=== PATIENT | female | born 1950 | race Caucasian/White ===

== ENCOUNTER 2023-06-08 13:11 | Emergency (ER) | payer OTHER, SELFPAY ==
[2023-06-08 13:14] VITALS: BP 180/91
[2023-06-08 13:15] VITALS: BP 180/91; BMI 30.2
[2023-06-08 13:26] LABS: % Basophils 0.6 % (0-2); % Eosinophils 0.4 % (0-6); % Immature Granulocytes 1.1 % (0-0.5); % Lymphocytes 6.9 % (20.5-51.1); % Monocytes 6.7 % (1.7-9.3); % Neutrophils 84.3 % (42.2-75.2); Absolute Basophils 0.1 10^3/uL (0-0.2); Absolute Eosinophils 0.1 10^3/uL (0-0.7); Absolute Immature Granulocytes 0.2 10^3/uL (0-0.05); Absolute Lymphocytes 0.9 10^3/uL (1.2-3.4); Absolute Monocytes 0.9 10^3/uL (0.1-0.6); Absolute Neutrophils 11.4 10^3/uL (1.4-6.5); Hematocrit 38.2 % (37.0-47.0); Hemoglobin 13.2 g/dL (12.0-16.0); Mean Corp Hgb Conc. 34.6 g/dL (33.0-37.0); Mean Corpuscular Hgb 35.3 pg (27.0-31.0); Mean Corpuscular Volume 102.1 fL (81.0-99.0); Mean Platelet Volume 9.6 fL (7.4-10.4); Nucleated Red Blood Cells % 0 %; Platelet Count 235 10^3/uL (130-400); Red Blood Cell Count 3.74 10^6/uL (4.20-5.40); Red Cell Dist. Width 14.5 % (11.5-14.5); White Blood Cell Count 13.5 10^3/uL (4.8-10.8)
[2023-06-08 13:39] LABS: COVID-19 Antigen Negative (Negative)
[2023-06-08 13:50] LABS: NT-proBNP 1330 pg/ml; Troponin I < 0.012 ng/ml
[2023-06-08 13:57] VITALS: BP 148/99
[2023-06-08 14:00] VITALS: BP 164/101
--- NOTE | 2023-06-08 14:03 | ED.GENMED ---
History of Present Illness
General
Chief Complaint: Chest Pain
Source: patient
Exam Limitations: none
Time Seen by Provider: 06/08/23 14:03
Travel History
Have you had any contact with someone who has COVID-19?: No
Do you have any symptoms of coronavirus? Fever > 100 degrees, chills, cough, shortness of breath, sore throat, loss of taste or smell, muscle aches, or headache?: No
History of Present Illness
History of Present Illness:
72-year-old female complaining of chest pain. Vague in nature. Started yesterday. Persisted throughout the evening persisted overnight, and did not sleep well. Persisted this morning. Relieved with nitroglycerin via the medics. Some increased
shortness of breath the last 2 to 3 days although shortness of breath is now at baseline. She feels comfortable at this time. She occasionally gets chest discomfort and will take a nitroglycerin although usually symptoms are much briefer
chronologically.
Past History
Past History
ED Past Medical History: Arrthythmia (Atrial fib, SVT), CHF, COPD, CVA (Left sided weakness,), HTN, Hypercholesterolemia, Psychiatric (Anxiety, Depression) and Other ( heart murmur, PNA, GI bleeding, Back pain, Migraines, diverticulitis, UTI, )
ED Past Surgical History: Orthopedic (Cervical spine surgery ) and Other (Cataracts, Left leg surgery with radiation)
Patient has exhibited threatening behavior?: No
PSI?: No
Social History
Tobacco: Non-smoker
Alcohol: None (Wine 2 glasses)
Drug: None
Personal:
Living: with family
Employment: Employed
Family History
Family History: CAD
Review of Systems
Review of Systems
All Other Systems: Not applicable
Constitutional: Reports weight loss; Denies weight gain
Respiratory: Reports cough (Chronic); Denies hemoptysis
Cardiac: Denies syncope
ABD/GI: Reports no symptoms
Phy Exam
Physical Exam
Physical Exam:
GENERAL: Alert and oriented in no apparent distress
EYE: Orbits normal.
NECK: Supple
ENT: Pharynx without erythema
CARDIAC: Regular rate and rhythm without any obvious murmurs.
LUNGS: Clear breath sounds,normal. Room air pulse ox 97%. Placed on 2 L at patient request. She states the oxygen makes her feel better
ABDOMEN: Soft, without focal tenderness or distention
NEUROLOGICAL: Alert and oriented , grossly non-focal
SKIN: Warm and dry, no rash or lesion, no discoloration, skin intact.
MUSCULOSKELETAL: No edema,no deformity.Good color
PSYCH: Normal and appropriate interaction.
Scores
Heart Score for Chest Pain Patients
STEMI patient?: No
History: Slightly or Non-Suspicious
ECG: Normal
Age: >/= 65 years
Risk Factors: >/= 3 Risk Factors or History of CAD
Troponin: </= Normal Limit
Heart Score for Chest Pain Patients: 4
Heart Score Risk: 20.3% MACE over next 6 weeks
Course
Orders/Labs/Results
Orders:
Orders
06/08/23 13:14
Electrocardiogram (*1) Urgent
Reason for Study: Chest Pain
EKG- Treatment ONCE
CR Chest - 2 Views Urgent
Comment:
Reason For Exam: shortness of breath
06/08/23 13:19
COVID-19 Antigen Urgent
Source: Nasal Swab
Complete Blood Count/With Diff Urgent
NT-proBNP Urgent
Troponin I Urgent
Influenza A+B Rapid Molecular Urgent
RADHA Source: Nasal Swab
Specimen Description:
06/08/23 15:21
Basic Metabolic Panel Routine
06/08/23 16:12
Electrocardiogram (*1) Stat
Reason for Study: Other
Other Reason for Exam: chest pain
EKG- Treatment ONCE
06/08/23 16:32
Troponin I Urgent
06/08/23 18:46
Oxycodone/Acetaminophen [Percocet 5325] 1 tablet PO NOW STA
Abnormal Lab Results
06/08/23 06/08/23
13:19 15:21
WBC 13.5 H 10^3/uL
(4.8-10.8)
RBC 3.74 L 10^6/uL
(4.20-5.40)
MCV 102.1 H fL
(81.0-99.0)
MCH 35.3 H pg
(27.0-31.0)
Abs Immat Gran (auto) 0.2 H 10^3/uL
(0-0.05)
Absolute Neuts (auto) 11.4 H 10^3/uL
(1.4-6.5)
Absolute Lymphs (auto) 0.9 L 10^3/uL
(1.2-3.4)
Absolute Monos (auto) 0.9 H 10^3/uL
(0.1-0.6)
Immature Gran % 1.1 H %
(0-0.5)
Neutrophils % 84.3 H %
(42.2-75.2)
Lymphocytes % 6.9 L %
(20.5-51.1)
Sodium 133 L mmol/L
(135-145)
Chloride 95 L mmol/L
(98-107)
Creatinine 0.5 L mg/dL
(0.6-1.0)
Glucose 117 H mg/dl
(70-99)
06/08/23 13:19
06/08/23 15:21
Vital Signs
Initial and Last Documented VS:
Initial Vital Signs
BP
180/91
06/08/23 13:14
Last Documented Vital Signs
Temp Pulse Resp BP Pulse Ox
97.6 F 82 23 180/91 96
06/08/23 13:15 06/08/23 13:30 06/08/23 13:30 06/08/23 13:15 06/08/23 13:15
MDM/Problems Addressed
Differential Diagnosis Includes:
Patient with prolonged chest discomfort for about 24 hours continuous in nature. Nonexertional nonpleuritic.. Initial cardiac testing all stable. With prolonged symptoms, feel troponin would have been bumped by this time. However for
completeness repeat troponin and EKG will be done. Patient is clinically not in heart failure. Chest x-ray is negative. Her weight is down. She has no leg edema. proBNP is up minimally however. Highly doubt pulmonary emboli. No pleuritic
pain. Shortness of breath is resolved.
*Radiology
Radiology exam reviewed: radiology read reviewed (Negative)
*Pulse Oximetry
Patient hypoxic: no
*EKG
Interpreted by ED Provider?: Yes
Interpretation: abnormal
Comparison EKG: changes noted
Heart Rate: 82
Rate: normal
Rhythm: sinus and PAC's
[place]: normal axis
Interval: normal interval
QRS Pattern: normal QRS
Ischemia: no ischemia
*Critical Care Note
Total Time (30-74mins, 75-104mins- exclusive of procedures): Not Applicable
Data Reviewed
Review of Other/Old Records Reveals: Labs, Records, Radiology Studies and Discharge Summary
Update Note
Update Note:
Repeat EKG normal sinus rhythm PACs no acute findings. Patient has been stable and asymptomatic since arrival. Prolonged chest pain with 2 negative troponins and stable EKGs. No respiratory symptoms currently. Discharged to follow-up. Patient
has a nonspecific leukocytosis
Cardiology was contacted for follow-up
ED Attending Note
-
Portions of this chart may have been created with voice recognition software.� Occasional wrong word or��sound alike� substitutions may have occurred due to the inherent limitations of voice recognition software.
Discharge Plan
Departure
Patient Disposition: Home (Routine Discharge)
Date of Disposition: 06/08/23
Time of Disposition: 18:30
Patient with high blood pressure during this ER visit?: Yes
Discharge Problem:
Transient chest pain/shortness of breath
Instructions: Shortness of Breath (Dyspnea) (DC), Chest Pain DCA Follow Up, BLOOD PRESSURE
Prescriptions:
No Action
aspirin 81 mg Tablet,Delayed Release (Dr/Ec)
81 mg PO DAILY@1100
spironolactone 25 mg Tablet
25 mg PO DAILY@1100
oxycodone-acetaminophen 5-325 mg Tablet
1 tab PO QID
Rx Instructions:
04/05/2023, patient filled this medication on 04/02/2023 for 120 tablets according to PDMP.
citalopram 20 mg Tablet
20 mg PO DAILY@1100
gabapentin 300 mg Capsule
300 mg PO TID
albuterol sulfate 90 mcg/actuation Hfa Aerosol Inhaler
2 puff INHALATION R DAILY
aripiprazole 2 mg Tablet
2 mg PO DAILY@1100
furosemide 40 MG tablet
40 mg PO BID
pantoprazole 40 MG tablet,delayed release (DR/EC)
40 mg PO DAILYPRN PRN (Reason: gerd)
ondansetron HCl 4 mg Tablet
4 mg PO TID PRN (Reason: nausea)
metoprolol succinate 100 MG tablet extended release 24 hr
100 mg PO DAILY@1100
loperamide 2 mg Capsule
2 mg PO BIDPRN PRN (Reason: diarrhea)
Centrum Silver 400-250 mcg Tablet,Chewable
1 tab PO DAILY@1100
atorvastatin 20 MG tablet
20 mg PO DAILY@1100
Referrals:
Landon Jaquez, [Family Provider] -
Interventions
Interventions:
*Risk Screen - Suicide Last Done: 06/08/23 13:15
*General Assessment Last Done: 06/08/23 13:15
*Neglect/Abuse Screening Last Done: 06/08/23 13:15
ED- Fall Risk Assessment Last Done: 06/08/23 13:15
*ED COVID-19 Vaccine History Last Done: 06/08/23 13:15
ED- Cardiac Assessment Last Done: 06/08/23 13:15
--- NOTE | 2023-06-08 15:21 | PHANOTE ---
med rec note- patient does not know her medication and said her will in off work at 4:30pm and will be in with patient medication list
[2023-06-08 15:52] LABS: Blood Urea Nitrogen 17 mg/dl (7-17); Calcium 9.2 mg/dl (8.4-10.2); Carbon Dioxide 24 mmol/L (22-30); Chloride 95 mmol/L (98-107); Estimated Creatinine Clearance 71 ml/min; Glucose 117 mg/dl (70-99); Sodium 133 mmol/L (135-145); eGFR > 60.00
[2023-06-08 17:06] LABS: Troponin I < 0.012 ng/ml
[2023-06-08] MEDS: PERCOCET 5/325 1 TABLET PO (18:50)
== END 2023-06-08 19:28 | disposition home or self-care (01) ==
LOC: EMR 13:11
PROVIDERS: Student in an Organized Health Care Education/Training Program; EMERGENCY PHYSICIAN Emergency Medicine; FAMILY PHYSICIAN Family Medicine
DX: R07.89 Other chest pain (principal); R06.02 Shortness of breath; I48.91 Unspecified atrial fibrillation; I47.10 Supraventricular tachycardia, unspecified; I11.0 Hypertensive heart disease with heart failure; I50.9 Heart failure, unspecified; E78.00 Pure hypercholesterolemia, unspecified; F32.A Depression, unspecified; F41.9 Anxiety disorder, unspecified; I25.10 Atherosclerotic heart disease of native coronary artery without angina pectoris; J44.9 Chronic obstructive pulmonary disease, unspecified; Z82.49 Family history of ischemic heart disease and other diseases of the circulatory system; Z86.73 Personal history of transient ischemic attack (TIA), and cerebral infarction without residual deficits; Z87.440 Personal history of urinary (tract) infections
CPT/HCPCS: 99283; 71046; 80048; 83880; 84484; 85025; 87502; 87811; 93005

== ENCOUNTER → 2023-10-13 17:42 | Outpatient (REF) | payer OTHER, SELFPAY | LOC: RAD 17:42 | PROVIDERS: ATTENDING PHYSICIAN Family Medicine | DX: I82.402 Acute embolism and thrombosis of unspecified deep veins of left lower extremity (principal) | CPT/HCPCS: 93971 ==

== ENCOUNTER 2023-11-23 13:18 | Inpatient (IN) | payer OTHER, SELFPAY ==
[2023-11-23] VITALS (11 sets, daily range): BP systolic 127–161; BP diastolic 73–101
[2023-11-23 07:38] LABS: % Basophils 0.3 % (0-2); % Eosinophils 0.2 % (0-6); % Immature Granulocytes 0.6 % (0-0.5); % Lymphocytes 9.9 % (20.5-51.1); % Monocytes 6.9 % (1.7-9.3); % Neutrophils 82.1 % (42.2-75.2); Absolute Immature Granulocytes 0.1 10^3/uL (0-0.05); Absolute Monocytes 0.7 10^3/uL (0.1-0.6); Hematocrit 36.1 % (37.0-47.0); Hemoglobin 12.5 g/dL (12.0-16.0); Mean Corp Hgb Conc. 34.6 g/dL (33.0-37.0); Mean Corpuscular Hgb 34.7 pg (27.0-31.0); Mean Corpuscular Volume 100.3 fL (81.0-99.0); Mean Platelet Volume 10.1 fL (7.4-10.4); Nucleated Red Blood Cells % 0 %; Platelet Count 247 10^3/uL (130-400); Red Cell Dist. Width 13.9 % (11.5-14.5); White Blood Cell Count 9.7 10^3/uL (4.8-10.8)
[2023-11-23 07:54] LABS: Blood Urea Nitrogen 8 mg/dl (7-17); Calcium 7.3 mg/dl (8.4-10.2); Carbon Dioxide 34 mmol/L (22-30); Chloride 93 mmol/L (98-107); Estimated Creatinine Clearance 60 ml/min; Glucose 130 mg/dl (70-99); Sodium 135 mmol/L (135-145); eGFR > 60.00
[2023-11-23] MEDS: PROTONIX IV 40 MG IV (07:58)
[2023-11-23] MEDS: ZOFRAN 4 MG IV (07:58)
[2023-11-23] MEDS: NSS 1000 IV ×2 (07:59→17:13)
--- NOTE | 2023-11-23 08:17 | ED.GENMED ---
History of Present Illness
General
Chief Complaint: Rectal Bleeding
Source: patient
Exam Limitations: none
Time Seen by Provider: 11/23/23 07:22
Nursing documentation reviewed up to this point in time: agreed with
History of Present Illness
History of Present Illness:
73-year-old female drinker history of anxiety hypercholesterolemia fluid retention PAF presents with nausea vomiting diarrhea has felt fairly ill through the weekend vomiting black material loose black stools, mild abdominal cramping felt ill today
called 911, denies any chest pain though she has had increased shortness of breath requiring increased oxygen has not had anything to eat for few days,
Past History
Past History
ED Past Medical History: Arrthythmia (Atrial fib, SVT), CHF, COPD, CVA (Left sided weakness,), HTN, Hypercholesterolemia, Psychiatric (Anxiety, Depression) and Other ( heart murmur, PNA, GI bleeding, Back pain, Migraines, diverticulitis, UTI, )
ED Past Surgical History: Orthopedic (Cervical spine surgery ) and Other (Cataracts, Left leg surgery with radiation)
Patient has exhibited threatening behavior?: No
PSI?: No
Social History
Tobacco: Non-smoker
Alcohol: Daily (Wine 2 glasses)
Drug: None
Personal:
Living: with family
Employment: Employed
Family History
Family History: CAD
Review of Systems
Review of Systems
All Other Systems: Not applicable
Constitutional: Reports fatigue
Respiratory: Reports trouble breathing; Denies cough
Cardiac: Reports no symptoms
ABD/GI: Reports abdominal pain, nausea, vomiting, diarrhea and black stools
: Reports no symptoms
Musculoskeletal: Reports no symptoms
Skin: Reports no symptoms
Neurological: Reports dizzy and weakness
Endocrine: Reports no symptoms
Hematologic/Lymphatic: Reports no symptoms
Psychiatric: Reports no symptoms
Phy Exam
Physical Exam
Physical Exam:
Physical Exam
General: Dyspneic somewhat anxious appearing for
Neck: Lips are dry
Heart: Regular
Lungs: Crackles at the left
Abdomen: Distended, minimal left lower abdominal
Neuro: alert and oriented. no focal neurological deficits
Skin: no rash
Psychiatric: Anxious minimally tremulous cooperative
Extremities: No calf pain
Course
Orders/Labs/Results
Orders:
Orders
11/23/23 07:30
Basic Metabolic Panel Urgent
Complete Blood Count/With Diff Urgent
11/23/23 07:44
Electrocardiogram (*1) Urgent
Reason for Study: Palpitations
EKG- Treatment ONCE
11/23/23 07:48
0.9% Sodium Chloride 1000 ml [Nss] 1,000 ml IV BOLUS
Ondansetron Injectable [Zofran] 4 mg IV NOW STA
Pantoprazole [Protonix IV] 40 mg IV NOW STA
11/23/23 07:49
Add On- LAB Urgent
Tests Added?: magnesium
11/23/23 07:53
CR Chest - 2 Views Urgent
Comment:
Reason For Exam: sob
11/23/23 08:55
Lorazepam [Ativan] 1 mg IV NOW STA
11/23/23 08:56
Clindamycin 600 mg/50 ml [Cleocin] 600 mg in 50 ml IV NOW
11/23/23 09:00
Add On- LAB Urgent
Tests Added?: procalcitonin
Basic Metabolic Panel Urgent
Magnesium Urgent
Troponin I Urgent
Abnormal Lab Results
11/23/23
07:30
RBC 3.60 L 10^6/uL
(4.20-5.40)
Hct 36.1 L %
(37.0-47.0)
MCV 100.3 H fL
(81.0-99.0)
MCH 34.7 H pg
(27.0-31.0)
Abs Immat Gran (auto) 0.1 H 10^3/uL
(0-0.05)
Absolute Neuts (auto) 8.0 H 10^3/uL
(1.4-6.5)
Absolute Lymphs (auto) 1.0 L 10^3/uL
(1.2-3.4)
Absolute Monos (auto) 0.7 H 10^3/uL
(0.1-0.6)
Immature Gran % 0.6 H %
(0-0.5)
Neutrophils % 82.1 H %
(42.2-75.2)
Lymphocytes % 9.9 L %
(20.5-51.1)
Chloride 93 L mmol/L
(98-107)
Carbon Dioxide 34 H mmol/L
(22-30)
Glucose 130 H mg/dl
(70-99)
Calcium 7.3 L mg/dl
(8.4-10.2)
11/23/23 07:30
Vital Signs
Initial and Last Documented VS:
Initial Vital Signs
Pulse Resp Pulse Ox
110 24 96
11/23/23 07:20 11/23/23 07:20 11/23/23 07:20
Last Documented Vital Signs
Pulse Resp BP Pulse Ox
100 18 160/101 96
11/23/23 08:00 11/23/23 08:00 11/23/23 08:00 11/23/23 08:14
MDM/Problems Addressed
Differential Diagnosis Includes:
Dehydration GI bleed colitis upper GI bleed gastritis pneumonia heart failure other
MDM/Problems Addressed:
Nausea vomiting diarrhea black stool shortness of
Chronic conditions affecting care: HTN, Arrhythmia and Psychiatric illness
Acute Exacerbation and/or Progression of Chronic Illness: HTN, Arrhythmia and Psychiatric illness
*Radiology
Radiology exam reviewed: preliminary read by ED provider
*Pulse Oximetry
Patient hypoxic: no
*EKG
Interpreted by ED Provider?: Yes
Interpretation: abnormal
Comparison EKG: no comparison EKG present
Heart Rate: 78
Rate: normal
Rhythm: sinus
Ischemia: non-specific ST changes
*Mixer Operator Raw Salt Interpretation
Rate: normal
Interpretation: normal
Heart Rate: 78
Rhythm: sinus
*Critical Care Note
Total Time (30-74mins, 75-104mins- exclusive of procedures): Not Applicable
Data Reviewed
Review of Other/Old Records Reveals: Labs
Source: patient
Update Note
Update Note:
Update labs are noted chest x-ray is noted patient passed some yellowish mucousy stool here,
Wonder if the patient could have some aspiration she states is possible, alcohol withdrawal could be playing a role to try dose of Ativan allergies are noted we will give clinda,
ED Attending Note
-
Portions of this chart may have been created with voice recognition software.� Occasional wrong word or��sound alike� substitutions may have occurred due to the inherent limitations of voice recognition software.
Discharge Plan
Departure
Patient Disposition: Admit
Date of Disposition: 11/23/23
Time of Disposition: 09:15
Admit to: Telemetry
Presentation/result/management discussed w/ accepting MD/DO: Hospitalist
Condition: Fair
Covid-19: Not Applicable
Discharge Problem:
Alcohol use, Paroxysmal atrial fibrillation, Dyspnea, Respiratory insufficiency, Chronic diastolic (congestive) heart failure, Pneumonia
Prescriptions:
No Action
aspirin 81 mg Tablet,Delayed Release (Dr/Ec)
81 mg PO DAILY@1100
spironolactone 25 mg Tablet
25 mg PO DAILY@1100
oxycodone-acetaminophen 5-325 mg Tablet
1 tab PO QID
Rx Instructions:
04/05/2023, patient filled this medication on 04/02/2023 for 120 tablets according to PDMP.
citalopram 20 mg Tablet
20 mg PO DAILY@1100
gabapentin 300 mg Capsule
300 mg PO TID
albuterol sulfate 90 mcg/actuation Hfa Aerosol Inhaler
2 puff INHALATION R DAILY
aripiprazole 2 mg Tablet
2 mg PO DAILY@1100
furosemide 40 MG tablet
40 mg PO BID
pantoprazole 40 MG tablet,delayed release (DR/EC)
40 mg PO DAILYPRN PRN (Reason: gerd)
ondansetron HCl 4 mg Tablet
4 mg PO TID PRN (Reason: nausea)
metoprolol succinate 100 MG tablet extended release 24 hr
100 mg PO DAILY@1100
loperamide 2 mg Capsule
2 mg PO BIDPRN PRN (Reason: diarrhea)
Centrum Silver 400-250 mcg Tablet,Chewable
1 tab PO DAILY@1100
atorvastatin 20 MG tablet
20 mg PO DAILY@1100
Referrals:
Landon Jaquez DO [Family Provider] -
Interventions
Interventions:
*Risk Screen - Suicide Last Done: 11/23/23 07:20
VW-Ewhgwr-Rgyuxtfipo Assessment Last Done: 11/23/23 08:14
ED- Cardiac Assessment Last Done: 11/23/23 08:14
ED- Pulmonary Assessment Last Done: 11/23/23 08:14
Discharge Date and Time
Print Language: UPPER SORBIAN
[2023-11-23] MEDS: ATIVAN 1 MG IV (09:04)
[2023-11-23] MEDS: CLEOCIN 50 IV (09:45)
[2023-11-23 11:33] LABS: Troponin I < 0.012 ng/ml
[2023-11-23 11:38] LABS: Blood Urea Nitrogen 7 mg/dl (7-17); Calcium 6.9 mg/dl (8.4-10.2); Carbon Dioxide 31 mmol/L (22-30); Chloride 95 mmol/L (98-107); Estimated Creatinine Clearance 70 ml/min; Glucose 126 mg/dl (70-99); Potassium 2.6 mmol/L (3.5-5.1); Sodium 134 mmol/L (135-145); eGFR > 60.00
[2023-11-23 11:45] LABS: Procalcitonin 0.06 ng/ml (0.0-0.25)
[2023-11-23 11:56] LABS: Magnesium 0.7 mg/dl (1.6-2.3)
[2023-11-23] MEDS: MAGNESIUM SULFATE 50 IV ×3 (12:03→22:32)
[2023-11-23] MEDS: KCL 40 MEQ PO ×3 (12:04→22:31)
[2023-11-23] MEDS: KCL 270 MEQ IV (12:27)
--- NOTE | 2023-11-23 13:05 | W.PN.UPDATE ---
Update Note
Progress Note Update
I saw and examined the patient.
The INSURANCE CLAIMS SUPERVISOR or PA's note was reviewed and I agree with the note.
Comment: 73-year-old female with alcohol abuse disorder who presents with chief complaints of nausea, vomiting, and diarrhea. She reports having melanotic stools and dark emesis.
137/84, 105, 20, 96% 2L NC O2
Gen: NAD, AAOx3, appears chronically ill.
Eyes: EOMI, PERRLA, no scleral icterus.
Neck: supple.
CV: Tachycardic, regular rhythm, +S1/S2, no m/r/g.
Resp: CTAB, no rales, wheezes, or rhonchi.
Abd: +BS, soft, NT, ND
Skin: No rashes.
Neuro: CN 2-12 intact, non-focal.
Psych: Normal mood and affect.
Lab Results
24 07
07:30 10:55
WBC 9.7
RBC 3.60 L
Hgb 12.5
Hct 36.1 L
MCV 100.3 H
MCH 34.7 H
MCHC 34.6
RDW 13.9
Plt Count 247
MPV 10.1
Abs Immat Gran (auto) 0.1 H
Absolute Neuts (auto) 8.0 H
Absolute Lymphs (auto) 1.0 L
Absolute Monos (auto) 0.7 H
Absolute Eos (auto) 0.0
Absolute Basos (auto) 0.0
Immature Gran % 0.6 H
Neutrophils % 82.1 H
Lymphocytes % 9.9 L
Monocytes % 6.9
Eosinophils % 0.2
Basophils % 0.3
Nucleated RBC % 0
Sodium 135 134 L
Potassium 2.6 L*
Chloride 93 L 95 L
Carbon Dioxide 34 H 31 H
BUN 8 7
Creatinine 0.7 0.6
Estimated Creat Clear 60 70
eGFR > 60.00 > 60.00
Glucose 130 H 126 H
Calcium 7.3 L 6.9 L*
Magnesium Cancelled 0.7 L*
Total Bilirubin Cancelled
AST Cancelled
ALT Cancelled
Alkaline Phosphatase Cancelled
Troponin I < 0.012
Total Protein Cancelled
Albumin Cancelled
Procalcitonin 0.06
CXR:
1. Findings suggestive of mild central pulmonary vascular congestion.
2. Haziness of the left hemidiaphragm, which may represent left lobe subsegmental atelectasis, pneumonia, or alveolar pulmonary edema.
3. No significant pleural effusion on either side.
Coffee-ground emesis, melena:
-NPO with IVFs
-PPI gtt
-H/H Q6H
-c/s GI
Multiple electrolyte abnormalities:
-Hypokalemia: Total of 120meq K today, recheck K this evening
-Hypomagnesemia: Total of 4g IV Mg, recheck Mg this evening
-Hypocalcemia: awaiting albumin to calculate corrected calcium
Alcohol abuse disorder:
-Patient is a poor historian at this time. She is given different stories as to how much alcohol she consumes and when her last drink was. To me she stated that her last drink was around 3 AM today.
-Aggressive IV fluids. Recent hemoglobin A1c was 6.6% so we will use normal saline at this time.
-MSAS protocol (IV thiamine/folate, PRN Ativan). Low threshold for phenobarbital taper or Precedex.
Situation is one of high risk.
--- NOTE | 2023-11-23 13:13 | HPS.HSE ---
Family Physician
-
Family Physician: Landon Jaquez
Chief Complaint
-
Nausea, Vomiting and Diarrhea
History of Present Illness
Patient is a 73 y/o female with a PMH of AFib, HTN, HLD, CHF, COPD, CVA with L-sided weakness, and anxiety who reports to the ED for nausea, vomiting, and diarrhea x 4 days. Patient admits that the nausea, vomiting, and diarrhea started Thursday. The
last time she vomited and had diarrhea was at 3am this morning. She describes the vomit as being 'Pepsi colored' and her stool as 'black pudding.' She admits to [facility] abdominal pain that she describes as a sharp, stabbing pain that rates 8/10. She
also experienced dizziness/lightheadedness when she gets up. She has had a decrease in her appetite since Thursday due to the nausea and vomiting. She admits to palpitations and LE edema, which aren't new for her. She denies chest pain, LOC, or vision
changes. She denies smoking. She states she drinks 2 glasses of wine per night but hasn't had any since Thursday, but then later reported last drink at 3AM. She has a history of previous GI bleeds with EGD in Mar 2022 showing moderate gastritis and
large duodenal ulcer.
Medical History
Past Medical History
Past Medical History: Reports Other
Additional Past Medical History:
Chronic Hypoxic Respiratory Failure
Chronic Diastolic Heart Failure
Paroxysmal Atrial Fibrillation
CVA
Essential Hypertension
Hyperlipidemia
Diabetes Mellitus, Type II
COPD
Anxiety/Depression
PUD with prior GI Bleed
Chronic Pain with Opioid Dependence
Past Surgical History: Reports Other
Additional Past Surgical History:
Left Leg Surgery
Cervical Spine Surgery
Social History
Tobacco: Non-smoker
Alcohol: Daily (2 glasses of white wine)
Family History
Family History: Not pertinent
Allergies / Home Medications
Allergies reflects when Allergies were last updated in [facility].
Home Medications with original date entered in [facility]
Allergy/Medication List:
Medications on admission are unable to be verified or confirmed at this time.
If medication reconciliation has not been performed, why?: Medication List N/A
Review of Systems
-
A 12 point ROS was completed and negative except as noted: Yes
Constitutional: Denies Fever or Chills
Respiratory: Denies Cough or Trouble Breathing
Cardiac: Reports Palpitations; Denies Chest Pain
: Reports See HPI
Physical Exam
Vital Signs
Vital Signs
Pulse Resp BP Pulse Ox
105 20 137/84 96
11/23/23 12:08 11/23/23 12:08 11/23/23 12:06 11/23/23 11:49
Physical Exam
General: Well Nourished and No Apparent Distress
HEENT: Anicteric and Moist mucous membranes
Respiratory: Clear, Non Labored Respirations and Other (Poor Inspiratory Effort)
Cardiac: S1/S2, Regular Rhythm and Tachycardia (Slightly)
GI: Soft and Tender (Mild throughout without rebound or guarding)
Musculoskeletal: No Clubbing, No Cyanosis and Other (Chronic edema per patient)
Skin: Warm and Dry
Neuro: Awake, Alert, Oriented and Nonfocal/grossly intact
Laboratory Results
-
11/23/23 07:30
Laboratory Results
Total Bilirubin Cancelled 11/23/23 07:30
AST Cancelled 11/23/23 07:30
ALT Cancelled 11/23/23 07:30
Alkaline Phosphatase Cancelled 11/23/23 07:30
Troponin I < 0.012 ng/ml 11/23/23 10:55
Data Reviewed
-
Lab Data: Labs Reviewed by me
Old Records: Reviewed
Impression/Plan
-
Coffee-Ground Emesis/Black Stools, concern for GI Bleed
-Consult GI
-Continue NPO/IVFs
-Continue Protonix drip
-Trend serial H&H
Acute/Severe Electrolyte Abnormalities: Hypokalemia, Hypomagnesemia and Hypocalcemia
-Await albumin to determine corrected calcium
-Continue to replace potassium and magnesium
-Recheck labs later this afternoon and in AM
Prolonged QT
-Avoid QT prolonging medications
-Recheck ECG in AM following electrolyte correction
Alcohol Use Disorder
-Continue alcohol withdrawal protocol
-Continue thiamine and folic acid
Chronic Hypoxic Respiratory Failure
-Continue supplemental oxygen - 3L at baseline
Chronic Diastolic Heart Failure
-Hold Lasix due to significant electrolyte abnormalities
-Monitor Is&Os and Daily Weights
Paroxysmal Atrial Fibrillation
-Patient is not on anticoagulation due to compliance issues, fall risk and prior history of GI Bleed
-Continue metoprolol for rate/rhythm control
Essential Hypertension
-Continue metoprolol
Hyperlipidemia
-Hold statin
Diabetes Mellitus, Type II
-Check HgbA1c
-Monitor sugars and continue coverage insulin
COPD, no acute exacerbation
-Patient does not appear to use any inhalers at home
Anxiety/Depression
-Resume home meds once able to confirm
Chronic Pain with Opioid Dependence
-Continue oxycodone as prior to admission
DVT proph: SCDs
Code Status: Full Code
--- NOTE | 2023-11-23 14:03 | CON.GI ---
Addendum entered and electronically signed by Sabrina Mayes MD 11/23/23 17:12:
I saw and examined the patient.
The [employer]OR [employer] or PA's note was reviewed and I agree with the note.
Comment:
Pt is a 73-year-old woman with a history of atrial fibrillation not on anticoagulation, CVA, COPD who has a history of a peptic ulcer disease with a DU in 2021 secondary to NSAIDs. She states that starting over the weekend she had some nausea a few
episodes of vomiting and diarrhea. She said the diarrhea was dark in nature. No recent antibiotics. No recent NSAIDs.
abd: soft nontender
dark brown stool
impression:
diarrhea
n/v
hx of PUD
plan:
stool studies
IV hydration and electrolyte correction
PPI
antiemetics
EGD when stable
Original Note:
Consultation
-
Date/Time Consultation Requested: 11/23/23
Date/Time Consultation Performed: 11/23/23 @ 13:45
Requesting Provider: Stephanie Wick PA-C
Performing Provider: MARY Dorantes; Dr. Sabrina Mayes
Reason for Consultation: r/o GI bleed, melena, coffee ground emesis
Medical History
Chief Complaint / HPI
Chief Complaint: nausea, vomiting, diarrhea
History of Present Illness:
The patient is a 73-year-old female with a past medical history significant for atrial fibrillation not on anticoagulation, hypertension, hyperlipidemia, CHF, COPD, CVA with history of left-sided weakness, anxiety, history of peptic ulcer disease
and GI bleed with admission in 2020 secondary to NSAIDs, diverticulitis, alcohol abuse, who presented to the emergency room with complaints of nausea, vomiting, and diarrhea. We are being asked to evaluate for possible GI bleed. The patient
reports that 4 days ago she developed diarrhea that appeared black in color. She notes that she continued with dark stools, and then yesterday started to feel unwell and developed nausea with vomiting. She notes that she did vomit multiple times
and it appeared black in color. She does note that she does drink Pepsi quite often and did drink it yesterday. She has not been eating or drink well otherwise. She reports having some abdominal pain in the left lower quadrant although does not
expand upon details further as she is falling asleep often during the evaluation. She reports she does take pantoprazole on occasion but does not taking this regularly as directed previously. She does drink 2 glasses of white wine on a daily basis
and has been doing so for many years. She also admits she takes Percocet 4 times a day and does suffer from constipation somewhat chronically. She does not take any laxatives on a regular basis. She denies any fevers or chills. She does have
some shortness of breath and dizziness but denies any chest pain. She denies any heartburn symptoms, dysphagia, or odynophagia. She denies any recent sick contacts or recent travel. She denies any recent medication changes or antibiotics. She
denies any use of NSAIDs. She denies any use of blood thinners. She denies any family history of GI cancers or disorders. She denies any history of alcohol withdrawal or drug use. X-ray of the chest showed findings suggestive of mild central
pulmonary vascular congestion and haziness of the left diaphragm with no significant pleural effusion. Routine labs on admission showed WBC 9.7, hemoglobin 12.5, MCV 100.3, platelets 247,000, sodium 135, potassium 2.6, total CO2 31, BUN 7,
creatinine 0.6, calcium 6.9, magnesium 0.7, troponin negative x 1, procalcitonin 0.06. LFTs are pending. She was treated with IV Zofran, IV Protonix and a 1 L fluid bolus. She was also given IV Ativan x 1 dose along with clindamycin IV x 1.
Potassium and magnesium repletion also in progress. She is being admitted for further evaluation by GI.
Past Medical History
Past Medical History: Arrhythmias (Afib off AC), Asthma, CHF, COPD, CVA (left sided wee), HTN, Hypercholesterolemia, NIDDM and Other (chronic hypoxic respiratory failure, PUD with GI bleed 2020, chronic pain syndrome on chronic narcotics)
Past Surgical History: Orthopedic (knee surgery, cervical spine surgery)
Social History
Tobacco: Non-Smoker
Alcohol: Daily (2 glasses of white wine daily for many years)
Drug: None
Personal:
Living: With Family
Family History
Family History: Reviewed & Not Pertinent
Allergies / Home Medications
Allergy/AdvReac Type Severity Reaction Status Date / Time
amlodipine besylate Allergy EDEMA Verified 05/21/23 18:05
[From Norvasc] SEVERE,
WAIST TO
TOES
codeine phosphate Allergy DIZZINESS Verified 05/21/23 18:05
[From Tylenol-Codeine #3]
Penicillins Allergy Rash Verified 05/21/23 18:05
ranitidine HCl [From Zantac] Allergy 'Tongue Verified 05/21/23 18:05
swells'
tramadol Allergy excessive Verified 05/21/23 18:05
drowsiness
�Medication �Instructions �Recorded
albuterol sulfate 90 mcg/actuation 2 puff inhalation R DAILY 03/26/22
aerosol inhaler Shortness of breath/wheezing
aripiprazole 2 mg tablet 2 mg PO DAILY@1100 Neurological 03/26/22
Condition/anxiety
aspirin 81 mg tablet,delayed 81 mg PO DAILY@1100 Blood clot 03/26/22
release prevention/tx
citalopram 20 mg tablet 20 mg PO DAILY@1100 Depression 03/26/22
furosemide 40 mg tablet 40 mg PO BID Fluid 03/26/22
retention/Swelling
gabapentin 300 mg capsule 300 mg PO TID neuropathy 03/26/22
oxycodone-acetaminophen 5 mg-325 1 tab PO QID Pain 03/26/22
mg tablet
spironolactone 25 mg tablet 25 mg PO DAILY@1100 Fluid 03/26/22
retention/Swelling
metoprolol succinate 100 mg 100 mg PO DAILY@1100 paroxysmal 01/30/23
tablet,extended release 24 hr atrial fibrillation
ondansetron HCl 4 mg tablet 4 mg PO TID PRN nausea 01/30/23
pantoprazole 40 mg tablet,delayed 40 mg PO DAILYPRN PRN gerd 01/30/23
release
atorvastatin 20 mg tablet 20 mg PO DAILY@1100 High 04/05/23
Cholesterol
loperamide 2 mg capsule 2 mg PO BIDPRN PRN diarrhea 04/05/23
multivit with min-folic 1 tab PO DAILY@1100 Supplement 04/05/23
acid-lutein 400 mcg-250 mcg
chewable tablet (Centrum Silver)
Review of Systems
-
History Source: Patient
Constitutional: Reports No Symptoms
EENT: Reports No Symptoms
Respiratory: Reports Trouble Breathing
Cardiac: Reports No Symptoms
Abdomen/GI: Reports Abdominal Pain, Nausea, Vomiting, Diarrhea, Black Stools and Other (coffee ground emesis)
: Reports No Symptoms
Musculoskeletal: Reports Other (chronic pain)
Skin: Reports No Symptoms
Neurological: Reports No Symptoms
Vital Signs
Pulse Resp BP Pulse Ox
95 24 127/84 89
11/23/23 13:15 11/23/23 13:15 11/23/23 13:00 11/23/23 13:15
Physical Exam
Exam
General: No Apparent Distress, Comfortable and Other (chronically ill appearing female in NAD)
HEENT: Normocephalic, Anicteric and Atraumatic
Respiratory: Non Labored Respirations and Other (overall diminished breath sounds bilaterally, supplemental O2 in place)
Cardiac: S1/S2 and Regular Rhythm (sinus tachycardia on tele monitor)
Breast: Deferred by me
GI: Soft, Normal Bowel Sounds, Tender (RUQ/LUQ/midepigastric area) and Distended (softly distended)
Rectal: Brown (green loose stool in diaper; rectal exam deferred)
Musculoskeletal: No Edema
Skin: Warm
Neuro: Awake, Alert, Oriented, AO x 3 and Other (falling asleep during conversation)
Psych: Calm
Results
WBC 9.7 10^3/uL (4.8-10.8) 11/23/23 07:30
Hgb 12.5 g/dL (12.0-16.0) 11/23/23 07:30
Hct 36.1 % (37.0-47.0) L 11/23/23 07:30
MCV 100.3 fL (81.0-99.0) H 11/23/23 07:30
Plt Count 247 10^3/uL (130-400) 11/23/23 07:30
Absolute Neuts (auto) 8.0 10^3/uL (1.4-6.5) H 11/23/23 07:30
Sodium 134 mmol/L (135-145) L 11/23/23 10:55
Potassium 2.6 mmol/L (3.5-5.1) L* 11/23/23 10:55
Chloride 95 mmol/L (98-107) L 11/23/23 10:55
Carbon Dioxide 31 mmol/L (22-30) H 11/23/23 10:55
BUN 7 mg/dl (7-17) 11/23/23 10:55
Creatinine 0.6 mg/dL (0.6-1.0) 11/23/23 10:55
Calcium 6.9 mg/dl (8.4-10.2) L* 11/23/23 10:55
Total Bilirubin Cancelled 11/23/23 07:30
AST Cancelled 11/23/23 07:30
ALT Cancelled 11/23/23 07:30
Alkaline Phosphatase Cancelled 11/23/23 07:30
Diagnostic Image Results:
11/23/2023 CXR:
1. Findings suggestive of mild central pulmonary vascular congestion.
2. Haziness of the left hemidiaphragm, which may represent left lobe subsegmental atelectasis, pneumonia, or alveolar pulmonary edema.
3. No significant pleural effusion on either side
Prior GI Procedures:
EGD: 03/18/2022 Dr. Mcpherson: Normal esophagus. Z-line regular, 37 cm from the incisors. Moderate diffuse gastritis. Biopsied for Helicobacter pylori testing. Duodenitis of the bulb. Large, non-bleeding duodenal ulcer with pigmented material due to
Aleve. Normal second portion of the duodenum, third portion of the duodenum and fourth portion of the duodenum. Biopsied for evaluation of celiac disease of the duodenum and fourth portion of the duodenum. Biopsied for evaluation of celiac disease.
Path showing mild chronic inactive gastritis and acute and chronic duodenitis, neg h pylori or celiac.
11/19/2020 EGD, Dr. Mcpherson: Normal esophagus. Widely patent Schatzki ring. Mild antral gastritis. Biopsied. Your ulcer has healed Normal examined duodenum. Biopsied. Path showing chronic gastritis, neg H pylori or IM, celiac neg.
07/04/2020 EGD: Normal esophagus. Non-bleeding gastric ulcer with a clean ulcer base (Joel Class III). Biopsied. Acute gastritis. Biopsied. Mucosal changes in the duodenum. Normal second portion of the duodenum. Path showing focally active
gastritis in the antrum, neg for IM or H pylori
09/26/2015 EGD: Normal esophagus. Z-line regular, 35 cm from the incisors. Normal stomach. Biopsied. Ulcer has healed. Normal mucosa was found in the greater curvature. Biopsied. Normal examined duodenum. Biopsied. Path showing chronic
inflammation of the stomach. Neg H pylori, celiac.
05/28/2015 EGD, Dr. Mcpherson: Normal esophagus. Z-line regular, 39 cm from the incisors. Gastric ulcer containing visible vessel. Treated with thermal therapy. Clips were placed. Red blood in the gastric fundus. Few other, shallow antral gastric
ulcers with clean base. Normal examined duodenum.
Colonoscopy: 09/26/2015 Dr. Mcpherson: Diverticulosis in the sigmoid colon and in the descending colon.
Assessment / Plan
-
The patient is a 73-year-old female with a past medical history significant for atrial fibrillation not on anticoagulation, hypertension, hyperlipidemia, CHF, COPD, CVA with history of left-sided weakness, anxiety, history of peptic ulcer disease
and GI bleed with admission in 2020 secondary to NSAIDs, diverticulitis, alcohol abuse, who presented to the emergency room with complaints of nausea, vomiting, and diarrhea, found to have concern for GI bleed with reported melena and coffee-ground
emesis. She is hemodynamically stable with a normal hemoglobin although with electrolyte abnormalities including a magnesium of 0.7 and potassium of 2.6. She does drink alcohol on a daily basis with 2 glasses of wine. She has some upper abdominal
tenderness but with +bowel sounds and soft abdomen. She has a history of peptic ulcer disease in 2020 where she was hospitalized with melena found to have a nonbleeding gastric ulcer and acute gastritis. Subsequent EGD showed healing of the ulcer.
She denies any further NSAID use. She does take Percocet for chronic pain which she takes 4 times daily, and does suffer from constipation due to this. She has had no further vomiting. Her stool is green/brown in color on exam. Her hemoglobin
is stable at 12.5. She does have electrolyte derangements with a potassium of 2.6 and a magnesium of 0.7. LFTs and renal function are normal.
Problem list:
-nausea, vomiting, diarrhea
-melena
-coffee ground emesis
-Hypoxia, with x-ray findings showing mild pulmonary congestion versus possible pneumonia
-Severe hypokalemia
-Severe hypomagnesemia
-Macrocytosis
-History of GI bleed secondary to peptic ulcer disease with NSAIDs use 2020
-Alcohol abuse
Other pertinent medical history:
-Hypertension
-Hyperlipidemia
-Chronic diastolic heart failure
-COPD
-Chronic respiratory failure
-CVA with history of left-sided weakness
-Anxiety
-Diverticulitis
Recommendations:
-Etiology of current symptoms possibly secondary to gastroenteritis versus other infectious etiology versus less likely GI bleed versus constipation given chronic narcotic use versus other.
---She has no ongoing signs of bleeding currently with a stable hemoglobin and stable hemodynamics. Her stool is green/brown in color. She has had no further vomiting.
-At this time would recommend checking stool studies to rule out infectious etiology
-Will check abdominal x-ray to rule out obstruction versus severe constipation given her history of narcotic use
-Trend H&H
-Would continue on PPI twice daily IV for now, although with normal BUN and no signs of active bleeding I feel that a bleeding ulcer is less likely
-To consider EGD, although the does not appear to need this urgently and can possibly be done outpatient if deemed necessary
-Replete electrolytes as per hospitalist
-Continue n.p.o. for now, but to consider initiating clear liquid diet as long as she has no further vomiting
-Limit use of narcotics as able
-Defer IV fluids to hospitalist given her hx CHF and O2 requirements
-Avoid use of NSAIDs given history of peptic ulcer disease
-I advised her she needs to reduce her alcohol intake given the risk for chronic liver disease including cirrhosis. Based on her labs she does not fit this picture with normal platelets and LFTs
-Further plan pending above
Data Reviewed
-
Old Records: Reviewed
-
-
Thank you for consultation and allowing me to participate in the patient's care. Please call the unified communications architect GI physician during the after hours with any questions or concerns.
[2023-11-23 14:35] LABS: ALT (SGPT) 16 U/L (0-35); AST (SGOT) 34 U/L (14-36); Albumin 3.3 g/dl (3.5-5.0); Alkaline Phosphatase 138 U/L (38-126); Direct Bilirubin 0.4 mg/dl (0.0-0.4); Total Protein 5.9 g/dl (6.3-8.2)
[2023-11-23 16:54] LABS: Glucose - Point of Care 118 mg/dl (70-99)
[2023-11-23] MEDS: CALCIUM GLUCONATE 100 IV (17:14)
[2023-11-23] MEDS: PROTONIX 100 IV (17:18)
[2023-11-23] MEDS: NOVOLOG FLEXPEN-LOW RESISTANCE SC (17:19)
[2023-11-23] MEDS: ROXICODONE 5 MG PO (17:20)
[2023-11-23] MEDS: THIAMINE INJECTION 200 MG IV (17:37)
[2023-11-23] MEDS: VENTOLIN NEBULES 2.5 MG INH (18:06)
[2023-11-23] MEDS: SYMBICORT 160/4.5 MCG INHALER 2 PUFF INH (18:07)
[2023-11-23 18:32] LABS: Hematocrit 32.7 % (37.0-47.0); Hemoglobin 11.4 g/dL (12.0-16.0)
[2023-11-23 20:57] LABS: INR 1.04; PT 13.4 Sec (11.4-14.6)
[2023-11-23 21:03] LABS: Blood Urea Nitrogen 6 mg/dl (7-17); Calcium 7.5 mg/dl (8.4-10.2); Carbon Dioxide 30 mmol/L (22-30); Chloride 97 mmol/L (98-107); Estimated Creatinine Clearance 70 ml/min; Glucose 118 mg/dl (70-99); Magnesium 1.3 mg/dl (1.6-2.3); Potassium 3.1 mmol/L (3.5-5.1); Sodium 135 mmol/L (135-145); eGFR > 60.00
[2023-11-23 21:23] LABS: Glucose - Point of Care 122 mg/dl (70-99)
[2023-11-24] VITALS (8 sets, daily range): BP systolic 109–180; BP diastolic 66–110; BMI 28.5
[2023-11-24] MEDS: THIAMINE INJECTION 200 MG IV ×3 (00:52→15:18)
[2023-11-24] MEDS: PROTONIX 100 IV ×2 (03:22→13:39)
[2023-11-24] MEDS: ROXICODONE 5 MG PO ×3 (03:42→20:28)
[2023-11-24] MEDS: NSS 1000 IV ×3 (03:46→23:04)
[2023-11-24 04:36] LABS: Ionized Calcium 0.92 mMOL/L (1.15-1.33)
[2023-11-24 04:37] LABS: Hematocrit 29.7 % (37.0-47.0); Hemoglobin 10.1 g/dL (12.0-16.0); Mean Corpuscular Hgb 34.7 pg (27.0-31.0); Mean Corpuscular Volume 102.1 fL (81.0-99.0); Mean Platelet Volume 10.2 fL (7.4-10.4); Platelet Count 185 10^3/uL (130-400); Red Blood Cell Count 2.91 10^6/uL (4.20-5.40); Red Cell Dist. Width 14.3 % (11.5-14.5); White Blood Cell Count 6.3 10^3/uL (4.8-10.8)
[2023-11-24 04:46] LABS: APTT 27.2 Sec (23.4-35.0); INR 1.18; PT 14.8 Sec (11.4-14.6)
[2023-11-24 05:00] LABS: ALT (SGPT) 15 U/L (0-35); AST (SGOT) 37 U/L (14-36); Albumin 2.9 g/dl (3.5-5.0); Alkaline Phosphatase 125 U/L (38-126); Blood Urea Nitrogen 6 mg/dl (7-17); Calcium 7.2 mg/dl (8.4-10.2); Carbon Dioxide 30 mmol/L (22-30); Chloride 104 mmol/L (98-107); Estimated Creatinine Clearance 70 ml/min; Glucose 101 mg/dl (70-99); Phosphorus 3.3 mg/dl (2.5-4.5); Sodium 137 mmol/L (135-145); Total Bilirubin 1.4 mg/dl (0.2-1.3); Total Protein 5.4 g/dl (6.3-8.2); eGFR > 60.00
[2023-11-24 05:15] LABS: Vitamin D, 25-OH*** < 12.8 ng/mL (30-80)
--- NOTE | 2023-11-24 06:03 | PTCARENOTE ---
Pt's Ca:7.2 and ionized calcium 0.92, Azam HERNANDEZ aware. no orders at this time.
[2023-11-24] MEDS: SYMBICORT 160/4.5 MCG INHALER 2 PUFF INH ×2 (07:35→21:14)
[2023-11-24] MEDS: FOLVITE 1 MG PO (07:47)
[2023-11-24] MEDS: TOPROL XL 50 MG PO ×2 (07:55→10:48)
[2023-11-24 08:08] LABS: Glucose - Point of Care 100 mg/dl (70-99)
[2023-11-24] MEDS: NOVOLOG FLEXPEN-LOW RESISTANCE SC ×3 (08:14→19:08)
--- NOTE | 2023-11-24 09:36 | W.PN.HOSP.TC ---
Addendum entered and electronically signed by Ivania Mendoza MD 11/24/23 12:26:
# pneumonia was ruled out
CXR noted Haziness of the left hemidiaphragm, which may represent left lobe subsegmental atelectasis, pneumonia, or alveolar pulmonary edema.
But given procal 0.06, which rules out bacterial pneumonia
Original Note:
Today's Communication/Plan
-
see A/P
Assessment / Plan
Assessment / Plan
HPI: 73 y/o female with PMH of AFib, HTN, HLD, CHF, COPD, CVA with L-sided weakness, and anxiety who reported to the ED for nausea, vomiting, and diarrhea x 4 days, started Thursday. The last time she vomited and had diarrhea was at 3am the morning of
admission. She described the vomit as being 'Pepsi colored' and her stool as 'black pudding.' She admitted to [facility] abdominal pain that she describes as a sharp, stabbing pain that rates 8/10. She also experienced dizziness/lightheadedness when she
gets up. She has had a decrease in her appetite due to the nausea and vomiting. She admits to palpitations and LE edema, which aren't new for her.
She states she drinks 2 glasses of wine per night but hasn't had any since Thursday, but then later reported last drink at 3AM. She has a history of previous GI bleeds with EGD in Mar 2022 showing moderate gastritis and large duodenal ulcer.
A/P:
# Coffee-Ground Emesis/Black Stools, concern for GI Bleed
Consult GI
Continue NPO/IVFs until lifted by GI
Continue Protonix drip
Trend serial H&H
# Diarrhea
follow stool studies: stool culture, C diff, Norovirus
consider loperamide once C diff ruled out
# Acute/Severe Electrolyte Abnormalities: Hypokalemia, Hypomagnesemia and Hypocalcemia
Repleted lytes with improvement
# Low vit D level
25 OH vit level low < 12.8
start high dose ergocalciferol 50 000 units weekly x7 doses then cholecalciferol
# Prolonged QT
Avoid QT prolonging medications
Repeat ECG following electrolyte correction noted improved QTc
# Alcohol Use Disorder
Continue alcohol withdrawal protocol
Continue thiamine and folic acid
# Chronic Hypoxic Respiratory Failure
Continue supplemental oxygen - 3L at baseline
# Chronic Diastolic Heart Failure
Hold Lasix due to significant electrolyte abnormalities
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
IV Hydralazine PRN
Monitor Is&Os and Daily Weights
# Paroxysmal Atrial Fibrillation
Patient is not on anticoagulation due to compliance issues, fall risk and prior history of GI Bleed
Continue metoprolol for rate/rhythm control
# Essential Hypertension
Continue metoprolol
# Hyperlipidemia
Hold statin
# Diabetes Mellitus, Type II
Check HgbA1c
Monitor sugars and continue coverage insulin
# COPD, no acute exacerbation
Patient does not appear to use any inhalers at home
# Anxiety/Depression
Resume home meds once able to confirm
# Chronic Pain with Opioid Dependence
Continue oxycodone as prior to admission
DVT proph: SCDs
Code Status: Full Code
DW RN
Anticipated Discharge: > 48 hours
Subjective/Interval History
-
Date of Service: November 24, 2023
Objective Data
-
Labs:
Laboratory Results
11/23/23 11/24/23 11/24/23
14:17 04:00 04:08
WBC 6.3
Hgb Cancelled 10.1 L
Hct Cancelled 29.7 L
Plt Count 185 D
PT Cancelled 14.8 H
INR Cancelled 1.18
APTT 27.2
Sodium 137
Potassium 4.0 D
Chloride 104
Carbon Dioxide 30
BUN 6 L
Creatinine 0.6
Glucose 101 H
Calcium 7.2 L
Total Bilirubin 1.4 H
AST 37 H
ALT 15
Alkaline Phosphatase 125
11/24/23
12:00
WBC
Hgb Pending
Hct Pending
Plt Count
PT
INR
APTT
Sodium
Potassium
Chloride
Carbon Dioxide
BUN
Creatinine
Glucose
Calcium
Total Bilirubin
AST
ALT
Alkaline Phosphatase
Vital Signs:
Vital Signs
Temp Pulse Resp BP Pulse Ox
37.1 C 95 18 180/106 96
11/24/23 07:55 11/24/23 08:14 11/24/23 08:14 11/24/23 08:58 11/24/23 08:14
I&O
11/23/23 11/24/23 11/25/23
06:59 06:59 06:59
Intake Total 1250 / 1250
Balance 1250 / 1250
Review of Systems
-
Abdomen/GI: Reports Diarrhea; Denies Nausea or Vomiting (resolved )
Physical Exam
-
General: Well Developed, Well Nourished, Comfortable and Respiratory Distress (chronic)
HEENT: Moist Mucous Membranes and Oxygen (3L NC)
Respiratory: Clear to Auscultation and Non Labored Respirations; Negative Accessory Resp Muscle Use
Cardiac: Regular Rhythm and S1/S2
GI: Soft, Nontender, Nondistended and Normal Bowel Sounds
Neuro: Awake and Alert
Psych: Calm and Intact Judgement/Insight
Data Reviewed
-
Labs: Labs Reviewed by me
[2023-11-24] MEDS: ALDACTONE 25 MG PO (10:48)
--- NOTE | 2023-11-24 11:53 | PN.CDI ---
CDI
- -
CDI:
Physician Documentation Request
Admit Date: 11/23/23 13:18
Dear Doctor Kelly,
Clinical Indicators:
The diagnosis of pneumonia was documented on 11/22, but is not consistently noted in subsequent documentation.
ER includes pneumonia as a diagnosis under 'discharge problems'
11/22 1 dose of clindamycin given.
11/22 chest x ray impression ' Haziness of the left hemidiaphragm, which may represent left lobe subsegmental atelectasis, pneumonia, or alveolar pulmonary edema'
Please clarify the following:
____ - Pneumonia is/was present
____ - Pneumonia was ruled out
____ - Other
Use of terms such as suspected, likely, concern for, or probable (associated with a specific diagnosis that is being evaluated, monitored, or treated as if it exists) are acceptable and can be coded in the inpatient setting, when documented at the
time of discharge.
Thank you,
Alysa Milan RN, BSN
CDI Specialist
tiger text
Please use your independent medical judgment in providing your response.
[2023-11-24] MEDS: ASPIR LOW (ENTERIC COATED) 81 MG PO (12:24)
[2023-11-24] MEDS: DRISDOL (VITAMIN D2) 50000 UNITS PO (12:24)
[2023-11-24] MEDS: NEURONTIN 300 MG PO (12:27)
[2023-11-24 13:35] LABS: Hematocrit 31.7 % (37.0-47.0); Hemoglobin 10.6 g/dL (12.0-16.0)
[2023-11-24 13:54] LABS: Glucose - Point of Care 103 mg/dl (70-99)
--- NOTE | 2023-11-24 13:58 | CM ---
Reviewed the chart notes and spoke with the patient at the bedside. The patient resides with her spouse in a two story home with two steps to enter. Master bedroom on first level. The patient has a rolling walker, cane, shower chair, shower
rails, and home O2 (3L/min continuous) through [employer]. The patient has had [facility] in the past and been to a SNF in [facility]. The patient confirmed her pharmacy of choice [facility] continues to be available to
patient/family and is monitoring medical plan for needs at discharge.
Plan: Discharge plans will depend on the patient's progress.
[2023-11-24 17:32] LABS: Glucose - Point of Care 116 mg/dl (70-99)
[2023-11-24] MEDS: TYLENOL 650 MG PO (20:35)
[2023-11-24 21:31] LABS: Glucose - Point of Care 105 mg/dl (70-99)
[2023-11-25] VITALS (8 sets, daily range): BP systolic 118–161; BP diastolic 67–99; PULSE 87–92; O2SAT 99; BMI 29.8
[2023-11-25] MEDS: PROTONIX 100 IV ×2 (00:15→08:54)
[2023-11-25] MEDS: THIAMINE INJECTION 200 MG IV ×4 (00:15→23:27)
--- NOTE | 2023-11-25 03:05 | DOWNTIME ---
There was a [employer] Client [employer] Downtime on 11/25/2023 from 0100 to 11/25/2023 at 0255. Downtime documentation of patient's care, including medication administrations, has been reconciled in the electronic record per guidelines. Refer to the
patient's paper chart under the miscellaneous tab to see printed paper medication records and downtime forms.
[2023-11-25 07:09] LABS: Hematocrit 30.3 % (37.0-47.0); Hemoglobin 10.3 g/dL (12.0-16.0); Mean Corpuscular Volume 103.1 fL (81.0-99.0); Mean Platelet Volume 11.4 fL (7.4-10.4); Platelet Count 144 10^3/uL (130-400); Red Blood Cell Count 2.94 10^6/uL (4.20-5.40); Red Cell Dist. Width 14.5 % (11.5-14.5); White Blood Cell Count 7.9 10^3/uL (4.8-10.8)
[2023-11-25 07:14] LABS: ALT (SGPT) 13 U/L (0-35); AST (SGOT) 32 U/L (14-36); Albumin 2.8 g/dl (3.5-5.0); Alkaline Phosphatase 114 U/L (38-126); Blood Urea Nitrogen 7 mg/dl (7-17); Calcium 7.8 mg/dl (8.4-10.2); Carbon Dioxide 22 mmol/L (22-30); Chloride 106 mmol/L (98-107); Estimated Creatinine Clearance 72 ml/min; Glucose 86 mg/dl (70-99); Magnesium 1.7 mg/dl (1.6-2.3); Potassium 4.2 mmol/L (3.5-5.1); Sodium 136 mmol/L (135-145); Total Bilirubin 1.5 mg/dl (0.2-1.3); Total Protein 5.5 g/dl (6.3-8.2); eGFR > 60.00
[2023-11-25] MEDS: SYMBICORT 160/4.5 MCG INHALER 2 PUFF INH ×2 (07:28→19:59)
[2023-11-25] MEDS: NSS 1000 IV (08:54)
[2023-11-25 08:56] LABS: Glucose - Point of Care 102 mg/dl (70-99)
[2023-11-25] MEDS: NOVOLOG FLEXPEN-LOW RESISTANCE SC ×3 (09:04→17:34)
[2023-11-25 10:24] LABS: Glycohemoglobin (HgbA1c) 5.9 % (4.0-5.6)
[2023-11-25] MEDS: ASPIR LOW (ENTERIC COATED) 81 MG PO (10:49)
[2023-11-25] MEDS: ROXICODONE 5 MG PO ×3 (10:49→21:09)
[2023-11-25] MEDS: TOPROL XL 100 MG PO (10:50)
[2023-11-25] MEDS: ALDACTONE 25 MG PO (10:51)
[2023-11-25] MEDS: FOLVITE 1 MG PO (10:51)
--- NOTE | 2023-11-25 11:23 | W.PN.GI.CBS2 ---
Addendum entered and electronically signed by Holly Bennett Do, MD 11/25/23 13:04:
I saw and examined the patient.
The PAIL BAILER's note was reviewed and I agree with the note.
Comment: She had one loose BM after drinking barium for UGI series. Tolerating diet. No further abd pain. VSS. obese NTTP, NABS. Labs neg stool studies. UGI SBFT unremarkable
Recommendations
- Adv to low residue diet
- If tolerates ok from GI perspective for hosp d/c
- Expect loose stools after barium study
- She is chronically on opioids and likely has IBS-C
- Discussed metamucil use daily skilled nursing
- C/w PPI
At this juncture no new GI recs will sign off please call for questions
Original Note:
Today's Communication / Plan
-
etiology related to gastroenteritis vs constipation with overflow diarrhea with narcotic use , ETOH related with daily ETOH intake vs other
s/p EGD with duodenal narrowing then UGI/SBFT normal without narrowing
tolerating clear and diarrhea noted after SB imaging and some LLQ pain
if LLQ worsens consider CT but currently s/p SBFT would need contrast to pass to complete
will trial low residue diet
discussed need for laxative plan
c-diff/giardia/crypto/norovirus neg stool cx pending
trend hbg
electrolytes improved
NSAID avoidance
reduce alcohol intake given the risk for chronic liver disease including cirrhosis.
Assessment / Plan
-
The patient is a 73-year-old female with a past medical history significant for atrial fibrillation not on anticoagulation, hypertension, hyperlipidemia, CHF, COPD, CVA with history of left-sided weakness, anxiety, history of peptic ulcer disease
and GI bleed with admission in 2020 secondary to NSAIDs, diverticulitis, alcohol abuse, who presented to the emergency room with complaints of nausea, vomiting, and diarrhea, found to have concern for GI bleed with reported melena and coffee-ground
emesis. She is hemodynamically stable with a normal hemoglobin although with electrolyte abnormalities including a magnesium of 0.7 and potassium of 2.6. She does drink alcohol on a daily basis with 2 glasses of wine. She has some upper abdominal
tenderness but with +bowel sounds and soft abdomen. She has a history of peptic ulcer disease in 2020 where she was hospitalized with melena found to have a nonbleeding gastric ulcer and acute gastritis. Subsequent EGD showed healing of the ulcer.
She denies any further NSAID use. She does take Percocet for chronic pain which she takes 4 times daily, and does suffer from constipation due to this.
11/25 RF UGI-Single Cont W/small Int
Markedly limited study as a result of patient debility and lack of mobility.
No findings to confirm focal area of duodenal narrowing.
No gross focal small bowel abnormality. Small bowel normal in caliber.
Contrast seen in the appendix.
11/24 - Normal esophagus.
- Small 2cm hiatal hernia.
- Erythematous mucosa in the antrum. Biopsied.
- Normal examined duodenum and duodenal bulb. Biopsied.
- Narrowed duodenal stenosis.
11/22 abd X ray
Relative paucity of bowel gas, intestinal bowel gas pattern overall nonobstructive.
Problem list:
-nausea, vomiting, diarrhea
-mild LLQ pain
-melena on admission -resolved with brown stools
-coffee ground emesis on admission now resolved
-Hypoxia, with x-ray findings showing mild pulmonary congestion versus possible pneumonia
-Severe hypokalemia
-Severe hypomagnesemia
-Macrocytosis
-History of GI bleed secondary to peptic ulcer disease with NSAIDs use 2020
-Alcohol abuse
Other pertinent medical history:
-Hypertension
-Hyperlipidemia
-Chronic diastolic heart failure
-COPD
-Chronic respiratory failure
-CVA with history of left-sided weakness
-Anxiety
-Diverticulitis
Recommendations:
etiology related to gastroenteritis vs constipation with overflow diarrhea with narcotic use , ETOH related with daily ETOH intake vs other
s/p EGD with duodenal narrowing then UGI/SBFT normal without narrowing
tolerating clear and diarrhea noted after SB imaging and some LLQ pain
if LLQ worsens consider CT but currently s/p SBFT would need contrast to pass to complete
will trial low residue diet
discussed need for laxative plan
c-diff/giardia/crypto/norovirus neg stool cx pending
trend hbg
electrolytes improved
NSAID avoidance
reduce alcohol intake given the risk for chronic liver disease including cirrhosis.
Subjective
Subjective
Date of Service: November 25, 2023
+ diarrhea after SBFT, some mild LLQ pain tolerating liquid diet
Objective
Data Reviewed
Laboratory Data:
Laboratory Results
11/25/23 05:53
11/25/23 05:53
Laboratory Results
PT 14.8 Sec (11.4-14.6) H 11/24/23 04:08
INR 1.18 11/24/23 04:08
APTT 27.2 Sec (23.4-35.0) 11/24/23 04:08
Phosphorus 3.3 mg/dl (2.5-4.5) 11/24/23 04:08
Magnesium 1.7 mg/dl (1.6-2.3) 11/25/23 05:53
Total Bilirubin 1.5 mg/dl (0.2-1.3) H 11/25/23 05:53
AST 32 U/L (14-36) 11/25/23 05:53
ALT 13 U/L (0-35) 11/25/23 05:53
Alkaline Phosphatase 114 U/L (38-126) 11/25/23 05:53
Vital Signs and I&O:
Vital Signs
Temp Pulse Resp BP Pulse Ox
98.0 F 87 16 161/99 99
11/25/23 11:20 11/25/23 11:20 11/25/23 11:20 11/25/23 11:20 11/25/23 11:20
I&O
11/24/23 11/25/23 11/26/23
06:59 06:59 06:59
Intake Total 1250 / 1250 2620 / 2620
Balance 1250 / 1250 2620 / 2620
Physical Exam
Physical Exam
HEENT: Anicteric and Moist mucous membranes
Cardiology: Normal Sinus Rhythm
Pulmonary: Clear
GI: Soft, Non Distended and Tender (minimal LLQ pain )
Extremities: No Edema
Neuro: Non Focal
[2023-11-25] MEDS: NEURONTIN 300 MG PO (11:27)
[2023-11-25 11:44] LABS: Glucose - Point of Care 125 mg/dl (70-99)
--- NOTE | 2023-11-25 11:59 | W.PN.HOSP.TC ---
Today's Communication/Plan
-
see A/P
Assessment / Plan
Assessment / Plan
HPI: 73 y/o female with PMH of AFib, HTN, HLD, CHF, COPD, CVA with L-sided weakness, and anxiety who reported to the ED for nausea, vomiting, and diarrhea x 4 days, started Thursday. The last time she vomited and had diarrhea was at 3am the morning of
admission. She described the vomit as being 'Pepsi colored' and her stool as 'black pudding.' She admitted to [facility] abdominal pain that she describes as a sharp, stabbing pain that rates 8/10. She also experienced dizziness/lightheadedness when she
gets up. She has had a decrease in her appetite due to the nausea and vomiting. She admits to palpitations and LE edema, which aren't new for her.
She states she drinks 2 glasses of wine per night but hasn't had any since Thursday, but then later reported last drink at 3AM. She has a history of previous GI bleeds with EGD in Mar 2022 showing moderate gastritis and large duodenal ulcer.
A/P:
# Coffee-Ground Emesis/Black Stools, concern for GI Bleed
s/p EGD 11/23 which was unrevealing: noted erythematous mucosa in the antrum. Biopsied. Normal examined duodenum and duodenal bulb. Biopsied. Narrowed duodenal stenosis.
UGI with SBFT unrevealing: Markedly limited study, no findings to confirm focal area of duodenal narrowing. No gross focal small bowel abnormality. Small bowel normal in caliber.
Diet advanced to low residue
DC Protonix drip, Cont Protonix daily
# Diarrhea
follow stool studies
C diff, Norovirus neg
Start loperamide PRN
# Acute/Severe Electrolyte Abnormalities: Hypokalemia, Hypomagnesemia and Hypocalcemia
Repleted lytes with improvement
# Low vit D level
25 OH vit level low < 12.8
started high dose ergocalciferol 50 000 units weekly x8 doses then cholecalciferol
# R foot dorsum pain from fall 2 months ago
Check R Foot XR
Lidocaine cream
Cont PT OT
# Prolonged QT
Avoid QT prolonging medications
Repeat ECG following electrolyte correction noted improved QTc
# Alcohol Use Disorder
Continue alcohol withdrawal protocol
Continue thiamine and folic acid
# Chronic Hypoxic Respiratory Failure
Continue supplemental oxygen - 3L at baseline
# Chronic Diastolic Heart Failure
Hold Lasix due to significant electrolyte abnormalities
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
IV Hydralazine PRN
Monitor Is&Os and Daily Weights
# Paroxysmal Atrial Fibrillation
Patient is not on anticoagulation due to compliance issues, fall risk and prior history of GI Bleed
Continue metoprolol for rate/rhythm control
# Essential Hypertension
Continue metoprolol
# Hyperlipidemia
Hold statin
# Diabetes Mellitus, Type II
HgbA1c 5.9%
Monitor sugars and continue coverage insulin
# COPD, no acute exacerbation
Patient does not appear to use any inhalers at home
# Anxiety/Depression
Resume home meds once able to confirm
# Chronic Pain with Opioid Dependence
Continue oxycodone as prior to admission
DVT proph: SCDs
Code Status: Full Code
PT OT cleared for HH
DW RN
Anticipated Discharge: 24 - 48 hours
Subjective/Interval History
-
Date of Service: November 25, 2023
Objective Data
-
Labs:
Laboratory Results
11/25/23
05:53
WBC 7.9
Hgb 10.3 L
Hct 30.3 L
Plt Count 144 D
Sodium 136
Potassium 4.2
Chloride 106
Carbon Dioxide 22
BUN 7
Creatinine 0.5 L
Glucose 86
Calcium 7.8 L
Total Bilirubin 1.5 H
AST 32
ALT 13
Alkaline Phosphatase 114
Vital Signs:
Vital Signs
Temp Pulse Resp BP Pulse Ox
36.7 C 87 16 161/99 99
11/25/23 11:20 11/25/23 11:20 11/25/23 11:20 11/25/23 11:20 11/25/23 11:20
I&O
11/24/23 11/25/23 11/26/23
06:59 06:59 06:59
Intake Total 1250 / 1250 2620 / 2620
Balance 1250 / 1250 2620 / 2620
[2023-11-25] MEDS: LMX 4 1 APPLIC TOPICAL (12:46)
--- NOTE | 2023-11-25 14:57 | CM ---
Case management following for d/c planning
Chart reviewed. Spoke with pt at bedside.
PT/OT recommending HH
Discussed with pt - prefers [facility]
Referral sent in care port for HH
CM will follow for d/c needs
PLan - anticipate home with [facility] when medically ready
[2023-11-25] MEDS: FIBERCON 1250 MG PO (16:57)
[2023-11-25 17:14] LABS: Glucose - Point of Care 129 mg/dl (70-99)
[2023-11-25] MEDS: TYLENOL 650 MG PO (20:52)
[2023-11-25 21:17] LABS: Glucose - Point of Care 129 mg/dl (70-99)
[2023-11-26 03:04] VITALS: BP 138/85
[2023-11-26] MEDS: ROXICODONE 5 MG PO (05:50)
[2023-11-26 06:02] VITALS: BMI 31.7
[2023-11-26 07:15] VITALS: BP 155/81
[2023-11-26] MEDS: SYMBICORT 160/4.5 MCG INHALER 2 PUFF INH ×2 (08:08→19:44)
[2023-11-26 08:34] LABS: Glucose - Point of Care 111 mg/dl (70-99)
[2023-11-26] MEDS: NOVOLOG FLEXPEN-LOW RESISTANCE SC ×3 (09:10→17:52)
[2023-11-26] MEDS: ALDACTONE 25 MG PO (09:11)
[2023-11-26] MEDS: THIAMINE INJECTION 200 MG IV (09:11)
[2023-11-26] MEDS: FOLVITE 1 MG PO (09:12)
[2023-11-26] MEDS: PROTONIX 40 MG PO (09:12)
[2023-11-26] MEDS: FIBERCON 1250 MG PO (09:12)
[2023-11-26] MEDS: TOPROL XL 100 MG PO (09:12)
[2023-11-26 11:00] VITALS: BP 152/81
[2023-11-26 11:47] LABS: Hematocrit 30.2 % (37.0-47.0); Mean Corp Hgb Conc. 33.1 g/dL (33.0-37.0); Mean Corpuscular Hgb 35.1 pg (27.0-31.0); Mean Platelet Volume 10.6 fL (7.4-10.4); Platelet Count 145 10^3/uL (130-400); Red Blood Cell Count 2.85 10^6/uL (4.20-5.40); Red Cell Dist. Width 14.3 % (11.5-14.5)
[2023-11-26 12:16] LABS: Glucose - Point of Care 129 mg/dl (70-99)
[2023-11-26 12:39] LABS: ALT (SGPT) 11 U/L (0-35); AST (SGOT) 22 U/L (14-36); Albumin 2.7 g/dl (3.5-5.0); Alkaline Phosphatase 96 U/L (38-126); Blood Urea Nitrogen 9 mg/dl (7-17); Calcium 8.3 mg/dl (8.4-10.2); Carbon Dioxide 28 mmol/L (22-30); Chloride 103 mmol/L (98-107); Estimated Creatinine Clearance 75 ml/min; Glucose 117 mg/dl (70-99); Magnesium 1.3 mg/dl (1.6-2.3); Potassium 4.4 mmol/L (3.5-5.1); Sodium 133 mmol/L (135-145); Total Bilirubin 0.8 mg/dl (0.2-1.3); Total Protein 5.2 g/dl (6.3-8.2); eGFR > 60.00
[2023-11-26] MEDS: NEURONTIN 300 MG PO (12:56)
[2023-11-26] MEDS: DELTASONE 20 MG PO (12:56)
[2023-11-26] MEDS: ASPIR LOW (ENTERIC COATED) 81 MG PO (12:56)
--- NOTE | 2023-11-26 14:17 | W.PN.HOSP.TC ---
Today's Communication/Plan
-
start steroids small dose
monitor Hbg
dischargeable in 24-48hrs
Assessment / Plan
Assessment / Plan
HPI: 73 y/o female with PMH of AFib, HTN, HLD, CHF, COPD, CVA with L-sided weakness, and anxiety who reported to the ED for nausea, vomiting, and diarrhea x 4 days, started Thursday. The last time she vomited and had diarrhea was at 3am the morning of
admission. She described the vomit as being 'Pepsi colored' and her stool as 'black pudding.' She admitted to [facility] abdominal pain that she describes as a sharp, stabbing pain that rates 8/10. She also experienced dizziness/lightheadedness when she
gets up. She has had a decrease in her appetite due to the nausea and vomiting. She admits to palpitations and LE edema, which aren't new for her.
She states she drinks 2 glasses of wine per night but hasn't had any since Thursday, but then later reported last drink at 3AM. She has a history of previous GI bleeds with EGD in Mar 2022 showing moderate gastritis and large duodenal ulcer.
A/P:
# Coffee-Ground Emesis/Black Stools, concern for GI Bleed
s/p EGD 11/23 which was unrevealing: noted erythematous mucosa in the antrum. Biopsied. Normal examined duodenum and duodenal bulb. Biopsied. Narrowed duodenal stenosis.
UGI with SBFT unrevealing: Markedly limited study, no findings to confirm focal area of duodenal narrowing. No gross focal small bowel abnormality. Small bowel normal in caliber.
Diet advanced to low residue
DC Protonix drip, Cont Protonix daily
hbg level stable. GI signed off.
# Diarrhea
IBS-C
stool studies - bacterial culture remains neg.
C diff, Norovirus neg
Start loperamide PRN
# Acute/Severe Electrolyte Abnormalities: Hypokalemia, Hypomagnesemia and Hypocalcemia
Repleted lytes with improvement
# Low vit D level
25 OH vit level low < 12.8
started high dose ergocalciferol 50 000 units weekly x8 doses then cholecalciferol
# R foot gout
foot xr neg
based of great toe redness/pain
start on oral prednisone 20mg/d
# Prolonged QT
Avoid QT prolonging medications
Repeat ECG following electrolyte correction noted improved QTc
# Alcohol Use Disorder
Continue alcohol withdrawal protocol
Continue thiamine and folic acid
# Chronic Hypoxic Respiratory Failure
Continue supplemental oxygen - 3L at baseline
# Chronic Diastolic Heart Failure
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
IV Hydralazine PRN
Monitor Is&Os and Daily Weights
# Paroxysmal Atrial Fibrillation
Patient is not on anticoagulation due to compliance issues, fall risk and prior history of GI Bleed
Continue metoprolol for rate/rhythm control
# Essential Hypertension
Continue metoprolol
# Hyperlipidemia
Hold statin
# Diabetes Mellitus, Type II
HgbA1c 5.9%
Monitor sugars and continue coverage insulin
# COPD, no acute exacerbation
Patient does not appear to use any inhalers at home
# Anxiety/Depression
Resume home meds once able to confirm
# Chronic Pain with Opioid Dependence
Continue oxycodone as prior to admission
DVT proph: SCDs
Code Status: Full Code
Anticipated Discharge: Within 24 hours
Subjective/Interval History
-
Date of Service: November 26, 2023
concerned about right foot pain
continues to have mild fever at evening
o2 requirement is stable
Objective Data
-
Labs:
Laboratory Results
11/26/23
11:15
WBC 9.0
Hgb 10.0 L
Hct 30.2 L
Plt Count 145
Sodium 133 L
Potassium 4.4
Chloride 103
Carbon Dioxide 28
BUN 9
Creatinine 0.6
Glucose 117 H
Calcium 8.3 L
Total Bilirubin 0.8
AST 22
ALT 11
Alkaline Phosphatase 96
Vital Signs:
Vital Signs
Temp Pulse Resp BP Pulse Ox
99.2 F 78 20 152/81 99
11/26/23 11:00 11/26/23 11:00 11/26/23 11:00 11/26/23 11:00 11/26/23 11:00
I&O
11/25/23 11/26/23 11/27/23
06:59 06:59 06:59
Intake Total 2620 / 2620 960 / 960
Balance 2620 / 2620 960 / 960
Review of Systems
-
Respiratory: Reports No Symptoms
Cardiac: Reports No Symptoms
Abdomen/GI: Reports No Symptoms
Physical Exam
-
General: Well Developed, Well Nourished, Comfortable and Respiratory Distress (chronic)
HEENT: Moist Mucous Membranes and Oxygen (3L NC)
Respiratory: Clear to Auscultation and Non Labored Respirations; Negative Accessory Resp Muscle Use
Cardiac: Regular Rhythm and S1/S2
GI: Soft, Nontender, Nondistended and Normal Bowel Sounds
Musculoskeletal: Other (Right foot first MTP joint swellin)
Neuro: Awake and Alert; Negative No Motor Deficits
Psych: Calm and Intact Judgement/Insight
[2023-11-26 15:35] VITALS: BP 167/98
[2023-11-26 16:55] LABS: Glucose - Point of Care 138 mg/dl (70-99)
[2023-11-26] MEDS: APRESOLINE 10 MG IV (17:58)
[2023-11-26] MEDS: VITAMIN B1 100 MG PO (20:18)
[2023-11-26 21:31] LABS: Glucose - Point of Care 172 mg/dl (70-99)
[2023-11-26 22:56] VITALS: BP 133/74
[2023-11-27] MEDS: ROXICODONE 5 MG PO (00:27)
[2023-11-27 05:13] VITALS: BMI 29.8
[2023-11-27 07:15] VITALS: BP 153/85
[2023-11-27 07:25] LABS: Glucose - Point of Care 108 mg/dl (70-99)
[2023-11-27] MEDS: NOVOLOG FLEXPEN-LOW RESISTANCE SC (07:31)
[2023-11-27] MEDS: SYMBICORT 160/4.5 MCG INHALER 2 PUFF INH (07:43)
[2023-11-27] MEDS: DELTASONE 20 MG PO (07:55)
[2023-11-27] MEDS: FIBERCON 1250 MG PO (07:56)
[2023-11-27] MEDS: PROTONIX 40 MG PO (07:56)
[2023-11-27] MEDS: VITAMIN B1 100 MG PO (07:56)
[2023-11-27] MEDS: TOPROL XL 100 MG PO (07:57)
[2023-11-27] MEDS: FOLVITE 1 MG PO (07:58)
[2023-11-27] MEDS: ALDACTONE 25 MG PO (07:58)
[2023-11-27] MEDS: FLUSH (NSS) 2 FLUSH IV (08:14)
[2023-11-27] MEDS: ZOFRAN 4 MG IV (08:14)
[2023-11-27 12:00] VITALS: BP 129/80
--- NOTE | 2023-11-27 12:17 | CM ---
Patient has been medically cleared for discharge to home with [facility], PT/OT services. will transport home.
[2023-11-27] MEDS: ASPIR LOW (ENTERIC COATED) 81 MG PO (12:40)
[2023-11-27] MEDS: NEURONTIN 300 MG PO (12:40)
[2023-11-27 12:44] LABS: Glucose - Point of Care 248 mg/dl (70-99)
[2023-11-27] MEDS: NOVOLOG FLEXPEN-LOW RESISTANCE 2 UNITS SC (12:52)
--- NOTE | 2023-11-27 13:47 | W.PN.HOSP.TC ---
Today's Communication/Plan
-
d/c home with home care
Assessment / Plan
Assessment / Plan
HPI: 73 y/o female with PMH of AFib, HTN, HLD, CHF, COPD, CVA with L-sided weakness, and anxiety who reported to the ED for nausea, vomiting, and diarrhea x 4 days, started Thursday. The last time she vomited and had diarrhea was at 3am the morning of
admission. She described the vomit as being 'Pepsi colored' and her stool as 'black pudding.' She admitted to [facility] abdominal pain that she describes as a sharp, stabbing pain that rates 8/10. She also experienced dizziness/lightheadedness when she
gets up. She has had a decrease in her appetite due to the nausea and vomiting. She admits to palpitations and LE edema, which aren't new for her.
She states she drinks 2 glasses of wine per night but hasn't had any since Thursday, but then later reported last drink at 3AM. She has a history of previous GI bleeds with EGD in Mar 2022 showing moderate gastritis and large duodenal ulcer.

# Coffee-Ground Emesis/Black Stools, concern for GI Bleed
s/p EGD 11/23 which was unrevealing: noted erythematous mucosa in the antrum. Biopsied. Normal examined duodenum and duodenal bulb. Biopsied. Narrowed duodenal stenosis.
UGI with SBFT unrevealing: Markedly limited study, no findings to confirm focal area of duodenal narrowing. No gross focal small bowel abnormality. Small bowel normal in caliber.
Diet advanced to low residue
DC Protonix drip, Cont Protonix daily
hbg level stable. GI signed off.
# Diarrhea
IBS-C
stool studies - bacterial culture remains neg.
C diff, Norovirus neg
Start loperamide PRN
# Acute/Severe Electrolyte Abnormalities: Hypokalemia, Hypomagnesemia and Hypocalcemia
Repleted electrolytes with improvement
# Low vit D level
25 OH vit level low < 12.8
started high dose ergocalciferol 50 000 units weekly x8 doses then cholecalciferol
# R foot gout
foot xr neg
base of great toe redness/pain
start on oral prednisone 20mg/d, better today, provided short 3 days course at discharge. further preventive therapy choice deferred to PCP.
# Prolonged QT
Avoid QT prolonging medications
Repeat ECG following electrolyte correction noted improved QTc
# Alcohol Use Disorder
Continue alcohol withdrawal protocol
Continue thiamine and folic acid
# Chronic Hypoxic Respiratory Failure
Continue supplemental oxygen - 3L at baseline
# Chronic Diastolic Heart Failure
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
IV Hydralazine PRN
Monitor Is&Os and Daily Weights
# Paroxysmal Atrial Fibrillation
Patient is not on anticoagulation due to compliance issues, fall risk and prior history of GI Bleed
Continue metoprolol for rate/rhythm control
# Essential Hypertension
Continue metoprolol
# Hyperlipidemia
Hold statin
# Diabetes Mellitus, Type II
HgbA1c 5.9%
Monitor sugars and continue coverage insulin
# COPD, no acute exacerbation
Patient does not appear to use any inhalers at home
# Anxiety/Depression
Resume home meds once able to confirm
# Chronic Pain with Opioid Dependence
Continue oxycodone as prior to admission
DVT proph: SCDs
Code Status: Full Code
More than 30 minutes spent in discharge including
Final examination of the patient
Summarizing hospital stay
Instructions for continuing care to all relevant caregivers
Preparation of discharge records, prescriptions, and referral forms
Total time spent (in minutes): 40 mins
Anticipated Discharge: Today
Subjective/Interval History
-
Date of Service: November 27, 2023
feeling subjectively better
right foot pain is improved
Objective Data
-
Vital Signs:
Vital Signs
Temp Pulse Resp BP Pulse Ox
98.0 F 76 16 153/85 97
11/27/23 07:15 11/27/23 07:57 11/27/23 07:45 11/27/23 07:57 11/27/23 10:50
I&O
11/26/23 11/27/23 11/28/23
06:59 06:59 06:59
Intake Total 960 / 960 2039
Balance 960 / 960 2039
Review of Systems
-
Respiratory: Reports No Symptoms
Cardiac: Reports No Symptoms
Abdomen/GI: Reports No Symptoms
Physical Exam
-
General: Well Developed, Well Nourished, Comfortable and Respiratory Distress (chronic)
HEENT: Moist Mucous Membranes and Oxygen (3L NC)
Respiratory: Clear to Auscultation and Non Labored Respirations; Negative Accessory Resp Muscle Use
Cardiac: Regular Rhythm and S1/S2
GI: Soft, Nontender, Nondistended and Normal Bowel Sounds
Musculoskeletal: Other (Right foot first MTP joint swelling )
Neuro: Awake and Alert; Negative No Motor Deficits
Psych: Calm and Intact Judgement/Insight
--- NOTE | 2023-11-27 15:56 | W.DCSUMMARY ---
Discharge Summary
Discharge Data
Date of Admission: 11/23/23
Date of Discharge: 11/27/23
-
Pending Results: No
Hospital Course
Discharging Physician : Dr Darryl Pastor
Disposition : Home
Primary care physician : Dr Landon Jaquez
Principal Discharge diagnosis :
Melena
Diarrhea, presumed overflow with irritable bowel syndrome-C vs Narcotic related constipation
Gout flareup
Electrolyte imbalance
Low vitamin D level
Chronic Discharge diagnosis :
Alcohol use disorder
Chronic hypoxic respiratory failure
Chronic diastolic congestive heart failure
Paroxysmal atrial fibrillation
Essential hypertension
Hyperlipidemia
Type 2 diabetes mellitus
Chronic obstructive pulmonary disease
Anxiety/depression
Chronic pain with opiate dependence
Hospital Course :
Patient is a 73-year-old female with a recent respiratory history came to ER for having new onset of nausea vomiting and diarrhea for 4 days. Patient also reported blood in stool/melena. Patient was having some lower left quadrant abdominal pain
described as sharp stabbing in nature.
GI was involved in care and with patient known history of narcotic dependence there was question of having possible colonic etiology explaining patient's symptoms. Patient had an upper GI series and abdominal x-ray did not show any signs of
obstruction, patient was shown to having moderate stool burden. GI suspected patient having IBS-C. Patient was maintained on symptomatic care with Metamucil. Per patient diarrhea was felt to be overflow in nature as well. Stool studies were
negative for any acute pathology.
For patient reported melena patient underwent an upper endoscopy which did not show any acute issues. There was some erythematous antral mucosa which were biopsied. There was narrowing in duodenum and for which follow-up upper GI series was done
as mentioned above and ruled out any duodenal stenosis. Patient was started on diet and was able to tolerate without any issues. No signs of repeat blood loss.
Patient also right foot gout this visit. Foot x-ray was negative for any acute pathology. Small dose steroid course was provided at discharge.
Post medical stabilization patient was discharged home.
Important imaging findings :
None
Procedure findings :
None
Discharge Plan
-
Patient Disposition: Home with Home Care
Discharge Diagnosis/Procedures: GI bleed, overflow diarrhea VS IBS, Gout episode
Condition: Fair
Diet: Low Residue
Activity: As tolerated
Driving Restrictions: As prior to admission
Bathing Restrictions: OK to Shower
Referrals:
Sabrina Mayes MD [Active] - in four to six weeks
Landon Jaquez DO [Family Provider] - in one week
Prescriptions:
New
prednisone 20 mg Tablet
20 mg PO DAILY Qty: 3 0RF
ergocalciferol (vitamin D2) 1,250 mcg (50,000 unit) Capsule
1,250 mcg PO QWEEK Qty: 14 0RF
calcium polycarbophil [Fiber-Tabs] 625 mg Tablet
1,250 mg PO DAILY Qty: 60 0RF
pantoprazole 40 mg Tablet,Delayed Release (Dr/Ec)
40 mg PO DAILY Qty: 30 2RF
Continued
aspirin 81 mg Tablet,Delayed Release (Dr/Ec)
81 mg PO DAILY@1100
oxycodone-acetaminophen 5-325 mg Tablet
1 tab PO QID
gabapentin 300 mg Capsule
300 mg PO NOON
albuterol sulfate 90 mcg/actuation Hfa Aerosol Inhaler
2 puff INHALATION R Q6HPRN PRN (Reason: sob)
spironolactone 25 mg Tablet
25 mg PO DAILY
fluticasone furoate-vilanterol [Breo Ellipta] 200-25 mcg/dose Blister With Device
1 inh INHALATION R DAILY
Celexa Tab
1 tab PO DAILY
Patient Comments:
11/23/23- patient currently not filling, no strength on home list
metoprolol succinate [Toprol XL] 100 mg Tablet Extended Release 24 Hr
100 mg PO DAILY
Patient Comments:
11/23/23- patient med list on has list on it but not currently fills but ecw has xl 100mg daily.
Discharge Orders:
Discharge Patient (As Directed); Ordered 11/27/23
Ordered By: Darryl Pastor
Discharge Date and Time
Discharge Date/Time: 11/27/23 15:08
Print Language: AZERBAIJANI
== END 2023-11-27 15:08 | disposition home health service (06) | DRG 378 ==
LOC: 2 NORTH 13:18
PROVIDERS: Internal Medicine; Nurse Practitioner Family; Physician Assistant Medical; ADMITTING PHYSICIAN Internal Medicine; ATTENDING PHYSICIAN Hospitalist; CONSULT PHYSICIAN Internal Medicine; EMERGENCY PHYSICIAN Emergency Medicine; FAMILY PHYSICIAN Family Medicine
DX: K92.1 Melena (principal); F11.20 Opioid dependence, uncomplicated; I50.32 Chronic diastolic (congestive) heart failure; J96.11 Chronic respiratory failure with hypoxia; K58.1 Irritable bowel syndrome with constipation; M10.9 Gout, unspecified; F10.10 Alcohol abuse, uncomplicated; I11.0 Hypertensive heart disease with heart failure; I48.0 Paroxysmal atrial fibrillation; E11.9 Type 2 diabetes mellitus without complications; E78.5 Hyperlipidemia, unspecified; J44.9 Chronic obstructive pulmonary disease, unspecified; G89.29 Other chronic pain; E87.6 Hypokalemia; E83.42 Hypomagnesemia
CPT/HCPCS: 88305; 71046; 73620; 74018; 74240; 74248; 80048; 80053; 82248; 82306; 82330; 82962; 83036; 83735; 84100; 84145; 84484; 85014; 85018; 85025; 85027; 85610; 85730; 87045; 87046; 87077; 87324; 87328; 87329; 87427; 87449; 87798; 88342; 89055; 93005; 94640; 96361; 96365; 96375; 97163; 97167; 99285

== ENCOUNTER → 2023-12-23 17:29 | Outpatient (REF) | payer OTHER, SELFPAY | LOC: PAVMRI 17:29 | PROVIDERS: ATTENDING PHYSICIAN Orthopaedic Surgery; FAMILY PHYSICIAN Family Medicine | DX: S22.000A Wedge compression fracture of unspecified thoracic vertebra, initial encounter for closed fracture (principal); S32.000A Wedge compression fracture of unspecified lumbar vertebra, initial encounter for closed fracture | CPT/HCPCS: 72146; 72148 ==

== ENCOUNTER 2024-04-21 18:18 | Observation (INO) | payer OTHER, SELFPAY ==
[2024-04-21] VITALS (8 sets, daily range): BP systolic 127–156; BP diastolic 69–97; BMI 29.5; BMI 27.5
[2024-04-21 14:03] LABS: % Basophils 0.9 % (0-2); % Eosinophils 0.3 % (0-6); % Immature Granulocytes 0.5 % (0-0.5); % Monocytes 6.3 % (1.7-9.3); Absolute Basophils 0.1 10^3/uL (0-0.2); Absolute Lymphocytes 0.5 10^3/uL (1.2-3.4); Absolute Monocytes 0.5 10^3/uL (0.1-0.6); Absolute Neutrophils 6.9 10^3/uL (1.4-6.5); Hemoglobin 13.3 g/dL (12.0-16.0); Mean Corp Hgb Conc. 33.3 g/dL (33.0-37.0); Mean Corpuscular Hgb 34.8 pg (27.0-31.0); Mean Corpuscular Volume 104.7 fL (81.0-99.0); Mean Platelet Volume 10.4 fL (7.4-10.4); Nucleated Red Blood Cells % 0 %; Platelet Count 167 10^3/uL (130-400); Red Blood Cell Count 3.82 10^6/uL (4.20-5.40); Red Cell Dist. Width 16.5 % (11.5-14.5)
--- NOTE | 2024-04-21 14:04 | EDRN ---
Pt states she has had N/V and diarrhea for last 4 days and SOB for last 3 days. Pt states she is on hospice and sent in by palliative caregiver from her home.
--- NOTE | 2024-04-21 14:05 | ED.GENMED ---
History of Present Illness
General
Chief Complaint: Abdominal Symptoms
Source: patient
Exam Limitations: none
Time Seen by Provider: 04/21/24 13:06
History of Present Illness
History of Present Illness:
73-year-old female started with nausea vomiting diarrhea 3 to 4 days ago. Shortness of breath started also at that time. Vomiting and diarrhea have proved although she has had no significant p.o. intake in 2 days. Shortness of breath this
persisted. She is on chronic 3 L nasal cannula. She denies chest pain or fever. No travel history. No unusual food ingestion. No one else is ill at home. No bloody stool. No recent antibiotics. Today she had a near syncopal episode which
prompted ER evaluation
Past History
Past History
ED Past Medical History: Arrthythmia (Atrial fib, SVT), CHF, COPD, CVA (Left sided weakness,), HTN, Hypercholesterolemia, Psychiatric (Anxiety, Depression) and Other ( heart murmur, PNA, GI bleeding, Back pain, Migraines, diverticulitis, UTI, )
ED Past Surgical History: Orthopedic (Cervical spine surgery ) and Other (Cataracts, Left leg surgery with radiation)
Patient has exhibited threatening behavior?: No
PSI?: No
Social History
Tobacco: Non-smoker
Alcohol: Daily (Wine 2 glasses)
Drug: None
Personal:
Living: with family
Employment: Employed
Family History
Family History: CAD
Review of Systems
Review of Systems
All Other Systems: Not applicable
Constitutional: Denies fever or chills
Respiratory: Denies cough
Cardiac: Denies chest pain
Phy Exam
Physical Exam
Physical Exam:
GENERAL: Alert and oriented in no apparent distress. Mildly weak appearing
EYE: Orbits normal.
NECK: Supple, no significant adenopathy.
ENT: Pharynx without erythema
CARDIAC: Regular rate and rhythm without any obvious murmurs.
LUNGS: Mild tachypnea/hyperventilation with dry bibasilar rales
ABDOMEN: Soft, bowel sounds present. Diffuse nonlocalizing mild tenderness. No rebound or guarding no mass or hernia
NEUROLOGICAL: Alert and oriented , grossly non-focal
SKIN: Warm and dry, no rash or lesion, no discoloration, skin intact.
MUSCULOSKELETAL: No edema,no deformity.Good color
PSYCH: Normal and appropriate interaction.
Course
Orders/Labs/Results
Orders:
Orders
04/21/24 13:07
Electrocardiogram (*1) Urgent
Reason for Study: Shortness of Breath
EKG- Treatment ONCE
04/21/24 13:09
Complete Blood Count/With Diff Urgent
Comprehensive Metabolic Panel Urgent
Lipase Urgent
NT-proBNP Urgent
04/21/24 14:03
IV Insert/Care/Rem.- Treatment PRN
CXR2 [CR Chest - 2 Views ] Urgent
Comment:
Reason For Exam: sob
04/21/24 14:04
CT Abd/Pel (IV only)-[facility] only Urgent
Comment:
Reason For Exam: Diffuse abdominal pain
04/21/24 15:13
Ondansetron Injectable [Zofran] 4 mg .ROUTE .STK-MED ONE
04/21/24 15:16
Troponin I Urgent
Norovirus by PCR Urgent
RADHA Source: Feces/Stool
Specimen Description:
Date Specimen was Collected: 04/21/24
Time Specimen was Collected: 15:14
STOOL [C difficile Antigen & Toxins] Urgent
RADHA Source: Feces/Stool
Specimen Description:
Date Specimen was Collected: 04/21/24
Time Specimen was Collected: 15:14
Stool Culture Urgent
RADHA Source: Feces/Stool
Specimen Description:
Date Specimen was Collected: 04/21/24
Time Specimen was Collected: 15:14
04/21/24 15:17
Ondansetron Injectable [Zofran] 4 mg IV NOW STA
04/21/24 16:04
Oxycodone/Acetaminophen [Percocet 5/325] 1 tablet .ROUTE .STK-MED ONE
04/21/24 16:32
Oxycodone/Acetaminophen [Percocet 5/325] 1 tablet PO NOW STA
Abnormal Lab Results
04/21/24
13:09
RBC 3.82 L 10^6/uL
(4.20-5.40)
MCV 104.7 H fL
(81.0-99.0)
MCH 34.8 H pg
(27.0-31.0)
RDW 16.5 H %
(11.5-14.5)
Absolute Neuts (auto) 6.9 H 10^3/uL
(1.4-6.5)
Absolute Lymphs (auto) 0.5 L 10^3/uL
(1.2-3.4)
Neutrophils % 86.0 H %
(42.2-75.2)
Lymphocytes % 6.0 L %
(20.5-51.1)
Potassium 3.2 L mmol/L
(3.5-5.1)
Chloride 93 L mmol/L
(98-107)
Carbon Dioxide 34 H mmol/L
(22-30)
Glucose 139 H mg/dl
(70-99)
Calcium 7.9 L mg/dl
(8.4-10.2)
AST 60 H U/L
(14-36)
04/21/24 13:09
04/21/24 13:09
Vital Signs
Initial and Last Documented VS:
Initial Vital Signs
Temp Pulse Resp BP Pulse Ox
97.9 F 87 24 152/86 96
04/21/24 13:05 04/21/24 13:05 04/21/24 13:05 04/21/24 13:05 04/21/24 13:05
Last Documented Vital Signs
Temp Pulse Resp BP Pulse Ox
98.3 F 91 18 133/89 98
04/21/24 16:38 04/21/24 16:38 04/21/24 16:38 04/21/24 16:38 04/21/24 16:38
MDM/Problems Addressed
Differential Diagnosis Includes:
Patient's initial symptoms of nausea vomiting diarrhea would be most consistent with a viral syndrome. We have been seeing significant norovirus recently. However with the shortness of breath would also have to consider cardiac etiology/CHF.
Workup in progress.
*Radiology
Radiology exam reviewed: radiology read reviewed (Unremarkable CT and ultrasound)
*Pulse Oximetry
Patient hypoxic: no
*Critical Care Note
Total Time (30-74mins, 75-104mins- exclusive of procedures): Not Applicable
Data Reviewed
Review of Other/Old Records Reveals: Labs, Records and Testing
Update Note
Update Note:
Patient is remained stable. Workup unremarkable. However still feels generally weak and short of breath. Will admit overnight
ED Attending Note
-
Portions of this chart may have been created with voice recognition software.� Occasional wrong word or��sound alike� substitutions may have occurred due to the inherent limitations of voice recognition software.
Discharge Plan
Departure
Patient Disposition: Admit
Date of Disposition: 04/21/24
Time of Disposition: 17:15
Presentation/result/management discussed w/ accepting MD/DO: Hospitalist
Discharge Problem:
Vomiting/diarrhea/weakness, Dyspnea
Prescriptions:
No Action
aspirin 81 mg Tablet,Delayed Release (Dr/Ec)
81 mg PO DAILY@1100
oxycodone-acetaminophen 5-325 mg Tablet
1 tab PO QID
gabapentin 300 mg Capsule
300 mg PO NOON
albuterol sulfate 90 mcg/actuation Hfa Aerosol Inhaler
2 puff INHALATION R Q6HPRN PRN (Reason: sob)
spironolactone 25 mg Tablet
25 mg PO DAILY
fluticasone furoate-vilanterol [Breo Ellipta] 200-25 mcg/dose Blister With Device
1 inh INHALATION R DAILY
Celexa Tab
1 tab PO DAILY
Patient Comments:
pat11/23/23- patient currently not filling, no strength on home list
metoprolol succinate [Toprol XL] 100 mg Tablet Extended Release 24 Hr
100 mg PO DAILY
Patient Comments:
11/23/23- patient med list on has list on it but not currently fills but ecw has xl 100mg daily.
prednisone 20 mg Tablet
20 mg PO DAILY Qty: 3 0RF
ergocalciferol (vitamin D2) 1,250 mcg (50,000 unit) Capsule
1,250 mcg PO QWEEK Qty: 14 0RF
calcium polycarbophil [Fiber-Tabs] 625 mg Tablet
1,250 mg PO DAILY Qty: 60 0RF
pantoprazole 40 mg Tablet,Delayed Release (Dr/Ec)
40 mg PO DAILY Qty: 30 2RF
Referrals:
Jake Mcpherson MD [Family Provider] -
Interventions
Interventions:
*Risk Screen - Suicide Last Done: 04/21/24 13:05
*General Assessment Last Done: 04/21/24 13:05
*Neglect/Abuse Screening Last Done: 04/21/24 13:05
ED- Fall Risk Assessment Last Done: 04/21/24 13:34
*ED COVID-19 Vaccine History Last Done: 04/21/24 13:05
HU-Lnmxeb-Mlsrekryed Assessment Last Done: 04/21/24 14:18
Discharge Date and Time
Print Language: HEBREW
--- NOTE | 2024-04-21 14:07 | EDRN ---
Pt is on 3lpm of oxygen continuously at home.
[2024-04-21 14:26] LABS: NT-proBNP 462 pg/ml
[2024-04-21 14:27] LABS: ALT (SGPT) 27 U/L (0-35); AST (SGOT) 60 U/L (14-36); Albumin 3.9 g/dl (3.5-5.0); Alkaline Phosphatase 105 U/L (38-126); Blood Urea Nitrogen 7 mg/dl (7-17); Calcium 7.9 mg/dl (8.4-10.2); Carbon Dioxide 34 mmol/L (22-30); Chloride 93 mmol/L (98-107); Estimated Creatinine Clearance 69 ml/min; Glucose 139 mg/dl (70-99); Lipase 41 U/L (23-300); Potassium 3.2 mmol/L (3.5-5.1); Sodium 137 mmol/L (135-145); Total Bilirubin 1.2 mg/dl (0.2-1.3); Total Protein 6.6 g/dl (6.3-8.2); eGFR > 60.00
--- NOTE | 2024-04-21 14:53 | CM ---
Addendum entered by Tricia Phillips 04/21/24 15:06:
Palliative care nurse's name is Isabella. Clarification: Patient had RR of 36 and numbness/tingling in [facility] palliative care office. Bedside RN made aware of this note.
Original Note:
Palliative care called to update CM about patient. Per nurse, patient is confused. Hx of alcohol abuse (current). 36 respirations numbness and tingling in arms. Patient is not on hospice. Non compliant with meds.
[2024-04-21] MEDS: ZOFRAN 4 MG IV (15:17)
[2024-04-21 16:09] LABS: Troponin I < 0.012 ng/ml
[2024-04-21] MEDS: PERCOCET 5/325 1 TABLET PO ×2 (16:33→21:57)
--- NOTE | 2024-04-21 17:49 | HPS.HSE ---
Family Physician
-
Family Physician: Jake Mcpherson
Chief Complaint
-
diarrhea
History of Present Illness
73-year-old female past medical history of alcohol use disorder, chronic hypoxemic respiratory failure on 3 L baseline, diastolic CHF, COPD, paroxysmal atrial fibrillation, essential hypertension, gout, hyperlipidemia, type 2 diabetes,
anxiety/depression, chronic pain opioid dependence, presenting with nausea vomiting 3 to 4 days ago. Vomiting and diarrhea have improved although she has had decreased p.o. intake in the past few days. She also developed shortness of breath at the
same time which has persisted. She denies any cough. Denies any sore throat but does have runny nose. She denies any chest pain or fever. Denies travel history. Denies any foreign food ingestion. Denies any blood in the stool. Denies recent
antibiotics.
She has not been taking Lasix for past few days.
Today she had a near syncopal episode which prompted ER evaluation.
Denies smoking or alcohol use.
Medical History
Past Medical History
Past Medical History: Reports Other (alcohol use disorder, chronic hypoxemic respiratory failure on 3 L baseline, diastolic CHF, COPD, paroxysmal atrial fibrillation, essential hypertension, gout, hyperlipidemia, type 2 diabetes, anxiety/depression,
chronic pain opioid dependence,)
Past Surgical History: Reports None
Social History
Tobacco: Non-smoker
Alcohol: None
Drug: None
Family History
Family History: Not pertinent
Allergies / Home Medications
Allergies reflects when Allergies were last updated in [facility].
Home Medications with original date entered in [facility]
Allergy/Medication List:
Allergies
Allergy/AdvReac Type Severity Reaction Status Date / Time
amlodipine besylate Allergy EDEMA Verified 04/21/24 13:08
[From Norvasc] SEVERE,
WAIST TO
TOES
codeine phosphate Allergy DIZZINESS Verified 04/21/24 13:08
[From Tylenol-Codeine #3]
Penicillins Allergy Rash Verified 04/21/24 13:08
ranitidine HCl [From Zantac] Allergy 'Tongue Verified 04/21/24 13:08
swells'
tramadol Allergy excessive Verified 04/21/24 13:08
drowsiness
Home Medications
albuterol sulfate 90 mcg/actuation aerosol inhaler 2 puff inhalation R Q6HPRN PRN sob 03/26/22
aspirin 81 mg tablet,delayed release 81 mg PO DAILY@1100 Blood clot prevention/tx 03/26/22
gabapentin 300 mg capsule 300 mg PO DAILYPRN PRN neuropathy 03/26/22
oxycodone-acetaminophen 5 mg-325 mg tablet 1 tab PO QID Pain 03/26/22
citalopram 20 mg tablet 20 mg PO DAILY Depression ##0 11/23/23
fluticasone furoate 200 mcg-vilanterol 25 mcg/dose inhalation powder (Breo Ellipta) 1 inh inhalation R DAILY Lung/Breathing Issues 11/23/23
metoprolol succinate 100 mg tablet,extended release 24 hr (Toprol XL) 100 mg PO DAILY Heart Failure 11/23/23
spironolactone 25 mg tablet 25 mg PO DAILY Fluid Retention/Swelling 11/23/23
pantoprazole 40 mg tablet,delayed release 40 mg PO DAILY #30 tabs 11/27/23
atorvastatin 20 mg tablet 20 mg PO DAILY 04/21/24
celecoxib 200 mg capsule 200 mg PO DAILY 04/21/24
furosemide 40 mg tablet 40 mg PO DAILY 04/21/24
loperamide 2 mg capsule 2 mg PO Q6HPRN PRN diarrhea 04/21/24
ondansetron HCl 4 mg tablet 4 mg PO Q8HPRN PRN nausea 04/21/24
Review of Systems
-
History Source: Patient
A 12 point ROS was completed and negative except as noted: Yes
Constitutional: Reports No Symptoms
EENT: Reports No Symptoms
Respiratory: Reports No Symptoms
Cardiac: Reports No Symptoms
Abdomen/GI: Reports See HPI
: Reports No Symptoms
Musculoskeletal: Reports No Symptoms
Skin: Reports No Symptoms
Neurological: Reports No Symptoms
Endocrine: Reports No Symptoms
Hematologic/Lymphatic: Reports No Symptoms
Psych: Reports No Symptoms
Physical Exam
Vital Signs
Vital Signs
Temp Pulse Resp BP Pulse Ox
98.3 F 91 18 133/89 98
04/21/24 16:38 04/21/24 16:38 04/21/24 16:38 04/21/24 16:38 04/21/24 16:38
Physical Exam
General: Well Developed, Well Nourished and No Apparent Distress
HEENT: NormoCephalic, Moist mucous membranes and Atraumatic
Respiratory: Clear
Cardiac: S1/S2 and Regular Rhythm; No Murmur or Rub
GI: Soft, Non Distended, Normal Bowel Sounds and Tender (diffuse ); No Organomegaly
Rectal: Deferred by Provider
Musculoskeletal: No Clubbing, No Cyanosis and No Edema
Skin: No Rash
Neuro: Nonfocal/grossly intact
Laboratory Results
-
04/21/24 13:09
04/21/24 13:09
Laboratory Results
Total Bilirubin 1.2 mg/dl (0.2-1.3) 04/21/24 13:09
AST 60 U/L (14-36) H 04/21/24 13:09
ALT 27 U/L (0-35) 04/21/24 13:09
Alkaline Phosphatase 105 U/L (38-126) 04/21/24 13:09
Troponin I < 0.012 ng/ml 04/21/24 15:16
Lipase 41 U/L (23-300) 04/21/24 13:09
Data Reviewed
-
Lab Data: Labs Reviewed by me
Old Records: Reviewed
Impression/Plan
-
IMPRESSION:
PLAN:
# Likely acute viral gastroenteritis
-Check stool culture, norovirus, C. difficile
-CT abdomen pelvis negative
-Clear liquid diet
-Zofran
-Hold off on IV fluids given dyspnea and history of heart failure
-Hold Lasix
# Acute on chronic dyspnea
#Chronic hypoxemic respiratory failure on 3 L baseline
-Patient saturating well on 3 L which is her baseline
-Chest x-ray unremarkable
-Cardiac BNP of 460
-Lungs sound clear, no signs of volume overload
-No cough to suggest URI
-Could be due to deconditioning from viral GI illness
COPD
-Continue albuterol, Breo
Chronic diastolic heart failure
-Hold Lasix, spironolactone
Paroxysmal atrial fibrillation
-Continue aspirin
-Continue metoprolol
History of IBS- C
History of rectal bleeding
History of low vitamin D
History of gout
Alcohol use disorder
-Denies recent alcohol use
Essential hypertension
Hyperlipidemia
-Continue statin
Type 2 diabetes
-Insulin sliding scale
Anxiety/depression
-Continue citalopram
Chronic pain with opiate dependence
-Continue gabapentin
-Continue oxycodone
Full code
DVT prophylaxis�heparin
Clear liquid diet
[2024-04-21] MEDS: SYMBICORT 160/4.5 MCG INHALER 2 PUFF INH (20:59)
[2024-04-21 21:51] LABS: Glucose - Point of Care 143 mg/dl (70-99)
[2024-04-21] MEDS: HEPARIN 5000 UNITS SC (21:56)
--- NOTE | 2024-04-22 05:12 | PTCARENOTE ---
Received pt from the ED via stretcher; AAOx3, c/o 10/18 pain in her back which pt states is her baseline and is chronic. Pt ordered medsurg, regular heart tones, lungs clear but diminished throughout. SpO2 100% on 3L O2 NC, baseline O2 requirement at
home. Abd with hyperactive bowel sounds, pt denies nausea, admits to diarrhea at home. Remainder of assessment as documented. Pt oriented to unit and call sheikh.
[2024-04-22 06:00] VITALS: BMI 27.5
[2024-04-22 07:00] VITALS: BP 148/90
[2024-04-22 08:00] LABS: % Basophils 0.6 % (0-2); % Eosinophils 1.6 % (0-6); % Immature Granulocytes 0.3 % (0-0.5); % Lymphocytes 10.5 % (20.5-51.1); % Monocytes 6.9 % (1.7-9.3); % Neutrophils 80.1 % (42.2-75.2); Absolute Eosinophils 0.1 10^3/uL (0-0.7); Absolute Lymphocytes 0.7 10^3/uL (1.2-3.4); Absolute Monocytes 0.4 10^3/uL (0.1-0.6); Hematocrit 37.2 % (37.0-47.0); Hemoglobin 12.4 g/dL (12.0-16.0); Mean Corp Hgb Conc. 33.3 g/dL (33.0-37.0); Mean Corpuscular Hgb 35.5 pg (27.0-31.0); Mean Corpuscular Volume 106.6 fL (81.0-99.0); Mean Platelet Volume 10.7 fL (7.4-10.4); Nucleated Red Blood Cells % 0 %; Platelet Count 157 10^3/uL (130-400); Red Blood Cell Count 3.49 10^6/uL (4.20-5.40); Red Cell Dist. Width 16.3 % (11.5-14.5); White Blood Cell Count 6.3 10^3/uL (4.8-10.8)
[2024-04-22] MEDS: CELEBREX 200 MG PO (08:02)
[2024-04-22] MEDS: PROTONIX 40 MG PO (08:02)
[2024-04-22] MEDS: TOPROL XL 100 MG PO (08:02)
[2024-04-22] MEDS: LIPITOR 20 MG PO (08:03)
[2024-04-22] MEDS: CELEXA 20 MG PO (08:03)
[2024-04-22] MEDS: PERCOCET 5/325 1 TABLET PO ×4 (08:03→21:24)
[2024-04-22] MEDS: HEPARIN 5000 UNITS SC ×2 (08:03→21:19)
[2024-04-22] MEDS: SYMBICORT 160/4.5 MCG INHALER 2 PUFF INH ×2 (08:28→20:53)
[2024-04-22 08:40] LABS: ALT (SGPT) 24 U/L (0-35); AST (SGOT) 53 U/L (14-36); Albumin 3.5 g/dl (3.5-5.0); Alkaline Phosphatase 82 U/L (38-126); Blood Urea Nitrogen 8 mg/dl (7-17); Calcium 7.7 mg/dl (8.4-10.2); Carbon Dioxide 34 mmol/L (22-30); Chloride 92 mmol/L (98-107); Estimated Creatinine Clearance 67 ml/min; Glucose 115 mg/dl (70-99); Potassium 3.5 mmol/L (3.5-5.1); Sodium 137 mmol/L (135-145); Total Bilirubin 1.7 mg/dl (0.2-1.3); Total Protein 6.2 g/dl (6.3-8.2); eGFR > 60.00
--- NOTE | 2024-04-22 09:41 | W.PN.HOSP.TC ---
Today's Communication/Plan
-
Limited abdominal ultrasound
Possible discharge later today
Assessment / Plan
Assessment / Plan
73-year-old female presenting with nausea/vomiting and diarrhea starting 4 days ago.
Chronic conditions prior to admission
Alcohol use disorder
Chronic hypoxemic respiratory failure on supplemental O2
HFpEF
COPD
Paroxysmal atrial fibrillation
Essential hypertension
Gout
GERD
Hyperlipidemia
Anxiety/depression
Chronic pain on opioids
Assessment and plan
# Possible acute viral gastroenteritis
-Stool study negative for norovirus, C. difficile
-CT abdomen pelvis: unremarkable, not suggestive of appendicitis
-Clear liquid diet-may ADAT
-Zofran PRN
-Continue to hold Lasix
# Elevated AST, total bili
-History of chronic alcohol use disorder
-Diffuse hepatic steatosis seen on CT scan
-Limited abdominal ultrasound to rule out GB pathology
# Acute on chronic dyspnea
-Chronic hypoxemic respiratory failure on 3L O2 at home
-Patient currently saturating well on 3L w/o any SOB
-Chest x-ray unremarkable
-Could be related to viral GI illness and clinical deterioration
# COPD
-On 3 L O2 (baseline)
-Cont Symbicort
-Continue albuterol PRN
#Chronic diastolic heart failure
-Hold Lasix, spironolactone
-Continue Celecoxib
-[id number]=[id number]
#Paroxysmal atrial fibrillation
-Continue aspirin
-Continue metoprolol
# DVT prophylaxis
-Heparin SC
# GERD
-Pantoprazole
# Hyperlipidemia
-Continue Lipitor
# Anxiety/depression
-Continue citalopram
Anticipated Discharge: Today
Subjective/Interval History
-
Date of Service: April 22, 2024
Patient mentions she is overall feeling good. Does feel nauseous at times. Diarrhea has improved. Denies any vomiting. Denies any shortness of breath or chest pain.
Objective Data
-
Labs:
Laboratory Results
04/22/24
07:31
WBC 6.3
Hgb 12.4
Hct 37.2
Plt Count 157
Sodium 137
Potassium 3.5
Chloride 92 L
Carbon Dioxide 34 H
BUN 8
Creatinine 0.6
Glucose 115 H
Calcium 7.7 L
Total Bilirubin 1.7 H
AST 53 H
ALT 24
Alkaline Phosphatase 82
Vital Signs:
Vital Signs
Temp Pulse Resp BP Pulse Ox
98.2 F 88 16 148/90 98
04/22/24 07:00 04/22/24 08:30 04/22/24 08:30 04/22/24 08:02 04/22/24 08:30
I&O
04/21/24 04/22/24 04/23/24
06:59 06:59 06:59
Intake Total 720 / 720
Balance 720 / 720
Review of Systems
-
History Source: Patient
All other systems: Reviewed and negative
Abdomen/GI: Reports Nausea and Pain (Lower abdominal pain)
Physical Exam
-
General: Well Developed, No Apparent Distress and Comfortable
HEENT: Normocephalic, Atraumatic and Moist Mucous Membranes
Respiratory: Clear to Auscultation, Non Labored Respirations and Other (On 3 L O2)
Cardiac: Regular Rhythm and S1/S2
GI: Soft, Tender (Right lower quadrant tenderness, suprapubic tenderness) and Distended (Mild)
Genito-urinary: No Costovertebral Tender
Musculoskeletal: No Clubbing, No Cyanosis and No Edema
Skin: Warm and Dry
Neuro: Awake, Alert, Oriented and AO x 3
[2024-04-22] MEDS: ASPIR LOW (ENTERIC COATED) 81 MG PO (12:12)
[2024-04-22 12:27] LABS: Glucose - Point of Care 130 mg/dl (70-99)
--- NOTE | 2024-04-22 13:04 | W.PN.UPDATE ---
Update Note
Progress Note Update
I saw and evaluated the patient. I reviewed the resident�s note and agree with findings and plan as documented in the resident�s note.
Patient reports diarrhea earlier today but none now. Reports some right upper quadrant abdominal pain which she attributes to vomiting.
Gen: NAD, AAOx3, appears chronically ill.
Eyes: EOMI, PERRLA, no scleral icterus.
Neck: supple.
CV: RRR, +S1/S2, no m/r/g.
Resp: CTAB, no rales, wheezes, or rhonchi.
Abd: +BS, soft, mild right upper quadrant tenderness to palpation,, ND
Skin: No rashes.
Neuro: CN 2-12 intact, non-focal.
Psych: Normal mood and affect.
CXR: No acute cardiopulmonary process.
CT A/P (w/IV): No significant acute abnormality identified in the abdomen or pelvis
Acute viral gastroenteritis:
-AST/bili minimally elevated, check Abd U/S
-C diff and norovirus NEG
-afebrile, no leukocytosis
-supportive care
-Advance diet as tolerated
Acute on chronic dyspnea:
-Chronic hypoxemic respiratory failure on 3L NC O2 at baseline
-Patient saturating well on 3 L which is her baseline
-Chest x-ray unremarkable
-Cardiac BNP of 460
-Lungs sound clear, no signs of volume overload
-No cough to suggest URI
-Could be due to deconditioning from viral GI illness
COPD
-Continue albuterol, Breo
Chronic diastolic heart failure
-Holding Lasix, spironolactone with acute viral gastroenteritis
Paroxysmal atrial fibrillation
-Continue aspirin
-Continue metoprolol
History of IBS- C
History of rectal bleeding
History of low vitamin D
History of gout
Alcohol use disorder
-Denies recent alcohol use
Essential hypertension
Hyperlipidemia
-Continue statin
Type 2 diabetes
-Insulin sliding scale
Anxiety/depression
-Continue citalopram
Chronic pain with opiate dependence
-Continue gabapentin
-Continue oxycodone
FULL/heparin
--- NOTE | 2024-04-22 13:41 | CM ---
Addendum entered by Nicole Valdez RN 04/22/24 14:26:
JOHNY updated Palliative Care Outpatient with plan for discharge on 04/23
Original Note:
Johny met with patient in room. Patient lives with . Patient has oxygen from [facility] . Patient's will transport home. Patient will remind to bring oxygen for discharge tomorrow. Patient is known to Palliative Care [facility].
Patient have been to SNF. Patient is agreeable to [facility]. 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
PLAN: home with palliative care, and [facility].
--- NOTE | 2024-04-22 14:22 | VNURNOTE ---
Home Health Liaison met with patient at bedside to discuss [facility] nurse/therapy, visits, schedule and homebound status. She has had [facility] in the past. Patient is agreeable and understands that visits at home will be 2-3 x per week to assess and teach
medical management.
[facility] brochure provided with contact information. Patient is aware that [facility] will contact them for start of care in 1-2 days after discharge from .
[facility] referral completed in [facility].
[2024-04-22 15:00] VITALS: BP 141/80
[2024-04-22 16:54] LABS: Glucose - Point of Care 108 mg/dl (70-99)
[2024-04-22 23:20] VITALS: BP 114/64
[2024-04-23 06:00] VITALS: BMI 27.3
[2024-04-23 06:13] LABS: Glucose - Point of Care 110 mg/dl (70-99)
[2024-04-23 07:00] VITALS: BP 155/88
[2024-04-23 07:12] LABS: Hematocrit 38.2 % (37.0-47.0); Hemoglobin 12.4 g/dL (12.0-16.0); Mean Corp Hgb Conc. 32.5 g/dL (33.0-37.0); Mean Corpuscular Hgb 35.2 pg (27.0-31.0); Mean Corpuscular Volume 108.5 fL (81.0-99.0); Mean Platelet Volume 10.9 fL (7.4-10.4); Platelet Count 141 10^3/uL (130-400); Red Blood Cell Count 3.52 10^6/uL (4.20-5.40); White Blood Cell Count 5.6 10^3/uL (4.8-10.8)
[2024-04-23 07:40] LABS: ALT (SGPT) 22 U/L (0-35); AST (SGOT) 45 U/L (14-36); Albumin 3.4 g/dl (3.5-5.0); Alkaline Phosphatase 83 U/L (38-126); Blood Urea Nitrogen 14 mg/dl (7-17); Calcium 7.4 mg/dl (8.4-10.2); Carbon Dioxide 39 mmol/L (22-30); Chloride 93 mmol/L (98-107); Direct Bilirubin 0.4 mg/dl (0.0-0.4); Estimated Creatinine Clearance 50 ml/min; Glucose 99 mg/dl (70-99); Potassium 3.5 mmol/L (3.5-5.1); Sodium 139 mmol/L (135-145); Total Bilirubin 1.1 mg/dl (0.2-1.3); eGFR > 60.00
[2024-04-23] MEDS: SYMBICORT 160/4.5 MCG INHALER 2 PUFF INH (07:53)
--- NOTE | 2024-04-23 08:04 | W.PN.HOSP.TC ---
Today's Communication/Plan
-
NPO for Limited abd US
Cont rest of care as before
Assessment / Plan
Assessment / Plan
73-year-old female presenting with nausea/vomiting and diarrhea starting 4 days ago.
Chronic conditions prior to admission
Alcohol use disorder
Chronic hypoxemic respiratory failure on supplemental O2
HFpEF
COPD
Paroxysmal atrial fibrillation
Essential hypertension
Gout
GERD
Hyperlipidemia
Anxiety/depression
Chronic pain on opioids
Assessment and plan
# Possible acute viral gastroenteritis
-Stool study negative for norovirus, C. difficile
-CT abdomen pelvis: unremarkable, not suggestive of appendicitis
-Multiple episodes of mod loose stool over the past 24 hours
-Tolerated carb-controlled diet w/o vomiting although did have nausea- made NPO for US today
-Still feels nauseous- Zofran PRN
-Continue to hold Lasix
# Elevated AST, total bili
-History of chronic alcohol use disorder
-Diffuse hepatic steatosis seen on CT scan
-Limited abd US to be done today
# Acute on chronic dyspnea
-Chronic hypoxemic respiratory failure on 3L O2 at home
-Patient currently saturating well on 3L w/o any SOB
-Chest x-ray unremarkable
-Could be related to viral GI illness and clinical deterioration
# COPD
-On 3 L O2 (baseline)
-Cont Symbicort
-Continue albuterol PRN
#Chronic diastolic heart failure
-Hold Lasix, spironolactone
-Continue Celecoxib
-[id number]
#Paroxysmal atrial fibrillation
-Continue aspirin
-Continue metoprolol
# DVT prophylaxis
-Heparin SC
# GERD
-Pantoprazole
# Hyperlipidemia
-Continue Lipitor
# Anxiety/depression
-Continue citalopram
Anticipated Discharge: Today
Subjective/Interval History
-
Date of Service: April 23, 2024
Patient complains of feeling nauseous. Mentions multiple episodes of loose stools. Abdominal pain has improved. No CP/SOB.
Objective Data
-
Labs:
Laboratory Results
04/23/24
06:25
WBC 5.6
Hgb 12.4
Hct 38.2
Plt Count 141
Sodium 139
Potassium 3.5
Chloride 93 L
Carbon Dioxide 39 H
BUN 14
Creatinine 0.8
Glucose 99
Calcium 7.4 L
Total Bilirubin 1.1
AST 45 H
ALT 22
Alkaline Phosphatase 83
Vital Signs:
Vital Signs
Temp Pulse Resp BP Pulse Ox
98.8 F 75 18 114/64 97
04/22/24 23:20 04/22/24 23:20 04/22/24 23:20 04/22/24 23:20 04/22/24 23:20
I&O
04/22/24 04/23/24 04/24/24
06:59 06:59 06:59
Intake Total 720 / 720 720 / 720
Balance 720 / 720 720 / 720
Review of Systems
-
History Source: Patient
All other systems: Reviewed and negative
Abdomen/GI: Reports Nausea, Diarrhea (multiple episodes over the past day) and Pain (Lower abdominal pain, improved)
Physical Exam
-
General: Well Developed, No Apparent Distress and Comfortable
HEENT: Normocephalic, Atraumatic and Moist Mucous Membranes
Respiratory: Clear to Auscultation, Non Labored Respirations and Other (On 3 L O2)
Cardiac: Regular Rhythm and S1/S2
GI: Soft, Tender (Right upper and lower quadrant tenderness) and Distended (Mild)
Genito-urinary: No Costovertebral Tender
Musculoskeletal: No Clubbing, No Cyanosis and No Edema
Skin: Warm and Dry
Neuro: Awake, Alert, Oriented and AO x 3
[2024-04-23] MEDS: CELEXA 20 MG PO (10:09)
[2024-04-23] MEDS: CELEBREX 200 MG PO (10:09)
[2024-04-23] MEDS: LIPITOR 20 MG PO (10:09)
[2024-04-23] MEDS: HEPARIN 5000 UNITS SC (10:09)
[2024-04-23] MEDS: TOPROL XL 100 MG PO (10:10)
[2024-04-23] MEDS: PROTONIX 40 MG PO (10:10)
[2024-04-23] MEDS: PERCOCET 5/325 1 TABLET PO ×2 (10:10→13:22)
[2024-04-23] MEDS: ASPIR LOW (ENTERIC COATED) 81 MG PO (10:36)
[2024-04-23 10:43] LABS: Glucose - Point of Care 118 mg/dl (70-99)
--- NOTE | 2024-04-23 11:24 | W.PN.UPDATE ---
Update Note
Progress Note Update
I saw and evaluated the patient. I reviewed the resident�s note and agree with findings and plan as documented in the resident�s note.
Patient reports diarrhea over the last 24 hours. Has been eating. Reports JAY but does have SOB at baseline.
Gen: remains NAD, AAOx3, appears chronically ill.
Eyes: EOMI, PERRLA, no scleral icterus.
Neck: supple.
CV: remains RRR, +S1/S2, no m/r/g.
Resp: very faint rales L base
Abd: +BS, soft, nontender to light palpation, ND
Skin: No rashes.
Neuro: CN 2-12 intact, non-focal.
Psych: Normal mood and affect.
04/21/24 15:16 Feces/Stool Salmonella/Shigella Culture - Final
No Salmonella, Shigella, Aeromonas or Plesiomonas species
isolated.
04/21/24 15:16 Feces/Stool Campylobacter Culture - Preliminary
Culture in Progress
04/21/24 15:16 Feces/Stool C. difficile GDH Antigen & Toxins - Final
Negative for toxigenic C.difficile
04/21/24 15:16 Feces/Stool - Final
Negative for Norovirus GI and GII.
CXR: No acute cardiopulmonary process.
CT A/P (w/IV): No significant acute abnormality identified in the abdomen or pelvis
Abd U/S: No sonographic evidence of acute cholecystitis. Hepatic steatosis. Mild bilateral renal atrophy.
Acute viral gastroenteritis:
-AST/bili minimally elevated on admission, now improved. Abd U/S notable for hepatic steatosis as above.
-C diff and norovirus NEG
-afebrile, no leukocytosis
-supportive care
-Advance diet as tolerated
Acute on chronic dyspnea:
-Chronic hypoxemic respiratory failure on 3L NC O2 at baseline
-Patient saturating well on 3 L which is her baseline
-Chest x-ray unremarkable
-Cardiac BNP of 460
-Lungs sound clear, no signs of volume overload
-No cough to suggest URI
-Could be due to deconditioning from viral GI illness
COPD
-Continue albuterol, Breo
Chronic diastolic heart failure
-Holding Lasix, spironolactone with acute viral gastroenteritis
Paroxysmal atrial fibrillation
-Continue aspirin
-Continue metoprolol
History of IBS- C
History of rectal bleeding
History of low vitamin D
History of gout
Alcohol use disorder
-Denies recent alcohol use
Essential hypertension
Hyperlipidemia
-Continue statin
Type 2 diabetes
-Insulin sliding scale
Anxiety/depression
-Continue citalopram
Chronic pain with opiate dependence
-Continue gabapentin
-Continue oxycodone
FULL/heparin
Medically cleared for d/c. Pt's overall prognosis is poor in the setting of her overwhelming burden of pathology. Case discussed with case management. She is being discharged home with visiting nurses and will be seeing palliative care after
discharge.
Total time spent on d/c = 35 min. This included today's physical exam, progress note, review of laboratory and diagnostic data, preparation of discharge documents and prescriptions, and discussions about the pt's hospital course and discharge plan
with the patient and other medical scientist involved in the patient's care.
--- NOTE | 2024-04-23 13:42 | CM ---
fleet dispatch manager reviewed patient's chart and patient has been cleared for discharge today, bilingual case manager met with patient who stated that she wanted to appeal her discharge, bilingual case manager explained to patient that she was admitted under OBS and therefore
cannot appeal her discharge, per patient she will leave later today and spouse will pick her up and bring in oxygen. Patient has been set up with [facility] and palliative care after discharge.
Plan; Home with [facility]N.
--- NOTE | 2024-04-23 14:52 | W.DCSUMMARY ---
Addendum entered and electronically signed by Gonzales Caruso MD 04/24/24 08:59:
Read, reviewed, and agree. See same day progress note for additional details.
Original Note:
Discharge Summary
Discharge Data
Date of Admission: 04/21/24
Date of Discharge: 04/23/24
-
Pending Results: No
Hospital Course
Patient is a 73-year-old female with past medical history of chronic alcohol use disorder, chronic hypoxemic respiratory failure on 3L O2 at home, HFpEF, COPD, diabetes, paroxysmal atrial fibrillation, essential hypertension, gout, hyperlipidemia,
anxiety/depression, and chronic pain with opioid dependence who presented with nausea, non-bloody non-bilious vomiting, and non-bloody diarrhea starting 3 to 4 days prior to admission. Vomiting and diarrhea gradually improved, however, she
continued to feel nauseous with limited p.o. intake and worsening shortness of breath. She felt lightheaded and had a near syncope episode, prompting her to present to ED.
Upon initial evaluation, her hemodynamics were stable. She was afebrile and leukocytosis was not present. CT abdomen/pelvis was unremarkable and not suggestive of appendicitis. She was admitted for observation overnight.
Stool studies were sent for norovirus and C. difficile, which came back negative. No Salmonella, Shigella, Aeromonas or Plesiomonas species were isolated.
She was initially started on clear liquid diet. Diet was gradually advanced and was well-tolerated. IV fluids were not given due to prior history of heart failure. Lasix and spironolactone were held.
Patient was placed on 3L nasal oxygen (same as prior to admission) and did not develop any respiratory distress during stay.
Patient did complain of occasional nausea during stay. AST/bili were minimally elevated on admission, which improved later. Limited abdominal ultrasound was done which did not show any acute gallbladder pathology.
Patient's chronic conditions were managed as prior to admission. Patient continued to receive Symbicort, albuterol as needed, supplemental oxygen for COPD. She was placed on sliding scale insulin for diabetes. Aspirin and metoprolol were
continued for paroxysmal A-fib. Celecoxib was continued for diastolic heart failure. Lipitor was continued for hyperlipidemia and escitalopram was continued for anxiety/depression.
Today, patient is medically stable for discharge. Patient's overall prognosis is poor in the setting of her overwhelming burden of pathology. Case was discussed with case management. She is being discharged to home with visiting nurses and will be
seeing palliative care after discharge.
Discharge Plan
-
Patient Disposition: Home (Routine Discharge)
Discharge Diagnosis/Procedures: Viral gastroenteritis
Condition: Fair
Diet: Diabetic, Carb Controlled
Activity: As tolerated
Driving Restrictions: As prior to admission
Bathing Restrictions: None
Specialty Instructions: Weigh Daily- Call MD for wt gain/loss 3 lbs overnight/5 lbs in 1 week
Activity Restrictions/Additional Instructions:
Your diuretics were held due to diarrhea. Once you stop having diarrhea please restart your Lasix and Aldactone
Referrals:
Jkae Mcpherson MD [Family Provider] -
Anjali Lynn MD [Active] -
Prescriptions:
Continued
aspirin 81 mg Tablet,Delayed Release (Dr/Ec)
81 mg PO DAILY@1100
oxycodone-acetaminophen 5-325 mg Tablet
1 tab PO QID
gabapentin 300 mg Capsule
300 mg PO DAILYPRN PRN (Reason: neuropathy)
albuterol sulfate 90 mcg/actuation Hfa Aerosol Inhaler
2 puff INHALATION R Q6HPRN PRN (Reason: sob)
citalopram 20 mg Tablet
20 mg PO DAILY Qty: 0
Patient Comments:
11/23/23- patient currently not filling, no strength on home list
fluticasone furoate-vilanterol [Breo Ellipta] 200-25 mcg/dose Blister With Device
1 inh INHALATION R DAILY
metoprolol succinate [Toprol XL] 100 mg Tablet Extended Release 24 Hr
100 mg PO DAILY
pantoprazole 40 mg Tablet,Delayed Release (Dr/Ec)
40 mg PO DAILY Qty: 30 2RF
celecoxib 200 mg Capsule
200 mg PO DAILY
atorvastatin 20 mg Tablet
20 mg PO DAILY
loperamide 2 mg Capsule
2 mg PO Q6HPRN PRN (Reason: diarrhea)
ondansetron HCl 4 mg Tablet
4 mg PO Q8HPRN PRN (Reason: nausea)
Discontinued
spironolactone 25 mg Tablet
25 mg PO DAILY
furosemide 40 mg Tablet
40 mg PO DAILY
Discharge Orders:
Discharge Patient (As Directed); Ordered 04/23/24
Ordered By: Gonzales Caruso
Discharge Date and Time
Print Language: MOZAMBICAN
[2024-04-23 15:48] VITALS: BP 140/85
== END 2024-04-23 16:45 | disposition home health service (06) ==
LOC: 4 WEST ACU 18:18
PROVIDERS: ADMITTING PHYSICIAN Hospitalist; ATTENDING PHYSICIAN Internal Medicine; EMERGENCY PHYSICIAN Emergency Medicine; FAMILY PHYSICIAN Specialist
DX: A08.4 Viral intestinal infection, unspecified (principal); R10.84 Generalized abdominal pain; R19.7 Diarrhea, unspecified; R11.2 Nausea with vomiting, unspecified; R55 Syncope and collapse; F32.A Depression, unspecified; E78.00 Pure hypercholesterolemia, unspecified; M54.9 Dorsalgia, unspecified; I50.32 Chronic diastolic (congestive) heart failure; I11.0 Hypertensive heart disease with heart failure; J44.9 Chronic obstructive pulmonary disease, unspecified; I69.354 Hemiplegia and hemiparesis following cerebral infarction affecting left non-dominant side; R53.1 Weakness; K58.9 Irritable bowel syndrome, unspecified; K76.0 Fatty (change of) liver, not elsewhere classified; N26.1 Atrophy of kidney (terminal); I49.1 Atrial premature depolarization; K21.9 Gastro-esophageal reflux disease without esophagitis; F10.10 Alcohol abuse, uncomplicated; J96.11 Chronic respiratory failure with hypoxia; F41.9 Anxiety disorder, unspecified; E11.9 Type 2 diabetes mellitus without complications; F11.20 Opioid dependence, uncomplicated; G89.29 Other chronic pain; M10.9 Gout, unspecified; I48.0 Paroxysmal atrial fibrillation; Z91.148 Patient's other noncompliance with medication regimen for other reason; Z88.5 Allergy status to narcotic agent; Z88.0 Allergy status to penicillin; Z88.8 Allergy status to other drugs, medicaments and biological substances; Z99.81 Dependence on supplemental oxygen; Z87.01 Personal history of pneumonia (recurrent); Z87.440 Personal history of urinary (tract) infections; Z82.49 Family history of ischemic heart disease and other diseases of the circulatory system; Z87.19 Personal history of other diseases of the digestive system; Z79.82 Long term (current) use of aspirin; Z79.51 Long term (current) use of inhaled steroids
CPT/HCPCS: 71046; 74177; 76700; 80053; 82248; 82962; 83036; 83690; 83880; 84484; 85025; 85027; 87045; 87046; 87324; 87427; 87449; 87798; 93005; 94640; 96374; 99285; G0378; Q9967

== ENCOUNTER 2024-08-22 08:06 | Emergency (ER) | payer OTHER, SELFPAY ==
[2024-08-22] VITALS (13 sets, daily range): BP systolic 130–179; BP diastolic 80–148
--- NOTE | 2024-08-22 08:53 | ED.GENMED ---
History of Present Illness
<Jori Robledo MD, Resident - Last Filed: 08/22/24 14:00>
General
Chief Complaint: Musculo-Skeletal Complaint
Time Seen by Provider: 08/22/24 08:34
History of Present Illness
History of Present Illness:
This is a 73-year-old female with past medical history of atrial fibrillation, CHF, chronic back pain on who presents to the ER after a fall. Patient reports she tripped over her dog and fell onto her left shoulder. In addition she reports hitting
her head on the floor. She crawled from her bedside to the phone to call EMS. She was dragged from the floor onto a stretcher. She received 60 mcg of fentanyl by EMS. She reports numbness, tingling and weak sensation in the left arm. Denies
previous surgery to the shoulder. She denies neck pain, headaches. She is not on a blood thinner.
Past History
<Jori Robledo MD, Resident - Last Filed: 08/22/24 14:00>
Past History
ED Past Medical History: Arrthythmia (Atrial fib, SVT), CHF, COPD, CVA (Left sided weakness,), HTN, Hypercholesterolemia, Psychiatric (Anxiety, Depression) and Other ( heart murmur, PNA, GI bleeding, Back pain, Migraines, diverticulitis, UTI, )
ED Past Surgical History: Orthopedic (Cervical spine surgery ) and Other (Cataracts, Left leg surgery with radiation)
Patient has exhibited threatening behavior?: No
PSI?: No
Social History
Tobacco: Non-smoker
Alcohol: Daily (Wine 2 glasses)
Drug: None
Personal:
Living: with family
Employment: Employed
Family History
Family History: CAD
Phy Exam
<Jori Robledo MD, Resident - Last Filed: 08/22/24 14:00>
General Physical Exam
General Presentation: severe distress (Secondary to pain)
Cardiovascular Exam
Cardiovascular Exam: regular rate/rhythm
Pulmonary Exam
Pulmonary Exam: lungs clear and no respiratory distress
Gastrointestinal Exam
Gastrointestinal Exam: normal bowel sounds and non tender
Course
<Jori Robledo MD, Resident - Last Filed: 08/22/24 14:00>
Orders/Labs/Results
Orders:
Orders
08/22/24 08:43
HYDROmorphone [Dilaudid] 1 mg IV NOW STA
08/22/24 08:48
CT Head W/o Iv Contrast Urgent
Comment:
Reason For Exam: fall
Humerus, Left 2 Views [CR Humerus - Left Min 2 Views*] Urgent
Comment:
Reason For Exam: fall
08/22/24 09:02
Trimethobenzamide [Tigan] 100 mg IM NOW STA
08/22/24 09:23
ASA Classification Routine
Propofol [Diprivan] 50 mg IV NOW STA
08/22/24 09:31
Electrocardiogram (*1) Urgent
Reason for Study: Abnormal EKG
EKG- Treatment ONCE
HYDROmorphone [Dilaudid] 1 mg IV NOW STA
08/22/24 09:40
Complete Blood Count/With Diff Urgent
08/22/24 10:06
Shoulder, Left 2 View CR [CR Shoulder - Left Min 2 View*] Urgent
Comment: portable
Reason For Exam: post reduction
08/22/24 12:35
Shoulder Immobilizer Left- Tx ONCE
Abnormal Lab Results
08/22/24
09:40
WBC 12.2 H 10^3/uL
(4.8-10.8)
RBC 3.89 L 10^6/uL
(4.20-5.40)
MCV 102.1 H fL
(81.0-99.0)
MCH 34.7 H pg
(27.0-31.0)
RDW 15.4 H %
(11.5-14.5)
Abs Immat Gran (auto) 0.1 H 10^3/uL
(0-0.05)
Absolute Neuts (auto) 9.6 H 10^3/uL
(1.4-6.5)
Absolute Monos (auto) 0.8 H 10^3/uL
(0.1-0.6)
Immature Gran % 0.8 H %
(0-0.5)
Neutrophils % 79.0 H %
(42.2-75.2)
Lymphocytes % 10.8 L %
(20.5-51.1)
08/22/24 09:40
08/22/24 10:25
Vital Signs
Initial and Last Documented VS:
Initial Vital Signs
Temp Pulse Resp BP Pulse Ox
97.8 F 72 16 174/107 96
08/22/24 08:14 08/22/24 08:14 08/22/24 08:14 08/22/24 08:14 08/22/24 08:14
Last Documented Vital Signs
Temp Pulse Resp BP Pulse Ox
97.8 F 76 22 160/86 97
08/22/24 08:14 08/22/24 12:22 08/22/24 12:22 08/22/24 12:22 08/22/24 12:22
<Prasad Reyes, DO - Last Filed: 08/22/24 13:42>
Orders/Labs/Results
Orders:
Orders
08/22/24 08:43
HYDROmorphone [Dilaudid] 1 mg IV NOW STA
08/22/24 08:48
CT Head W/o Iv Contrast Urgent
Comment:
Reason For Exam: fall
Humerus, Left 2 Views [CR Humerus - Left Min 2 Views*] Urgent
Comment:
Reason For Exam: fall
08/22/24 09:02
Trimethobenzamide [Tigan] 100 mg IM NOW STA
08/22/24 09:23
ASA Classification Routine
Propofol [Diprivan] 50 mg IV NOW STA
08/22/24 09:31
Electrocardiogram (*1) Urgent
Reason for Study: Abnormal EKG
EKG- Treatment ONCE
HYDROmorphone [Dilaudid] 1 mg IV NOW STA
08/22/24 09:40
Complete Blood Count/With Diff Urgent
08/22/24 10:06
Shoulder, Left 2 View CR [CR Shoulder - Left Min 2 View*] Urgent
Comment: portable
Reason For Exam: post reduction
08/22/24 12:35
Shoulder Immobilizer Left- Tx ONCE
Abnormal Lab Results
08/22/24
09:40
WBC 12.2 H 10^3/uL
(4.8-10.8)
RBC 3.89 L 10^6/uL
(4.20-5.40)
MCV 102.1 H fL
(81.0-99.0)
MCH 34.7 H pg
(27.0-31.0)
RDW 15.4 H %
(11.5-14.5)
Abs Immat Gran (auto) 0.1 H 10^3/uL
(0-0.05)
Absolute Neuts (auto) 9.6 H 10^3/uL
(1.4-6.5)
Absolute Monos (auto) 0.8 H 10^3/uL
(0.1-0.6)
Immature Gran % 0.8 H %
(0-0.5)
Neutrophils % 79.0 H %
(42.2-75.2)
Lymphocytes % 10.8 L %
(20.5-51.1)
08/22/24 09:40
08/22/24 10:25
Vital Signs
Initial and Last Documented VS:
Initial Vital Signs
Temp Pulse Resp BP Pulse Ox
97.8 F 72 16 174/107 96
08/22/24 08:14 08/22/24 08:14 08/22/24 08:14 08/22/24 08:14 08/22/24 08:14
Last Documented Vital Signs
Temp Pulse Resp BP Pulse Ox
97.8 F 76 22 160/86 97
08/22/24 08:14 08/22/24 12:22 08/22/24 12:22 08/22/24 12:22 08/22/24 12:22
Procedures
<Prasad Reyes, DO - Last Filed: 08/22/24 13:42>
Moderate Sedation
ASA Risk Score: Class II
Chart and allergies reviewed: Yes
Consent for anesthesia obtained: Yes
Time out completed (validating right patient & procedure): Yes
Moderate Sedation Start Time(when first medication is given): 09:56
History of difficult intubation: No
Airway free of obstruction: Yes
Patient has a gag reflex: Yes
Patient is able to open mouth: Yes
Patient has no dentures: Yes
Patient has no loose teeth: Yes
Medication administered by Provider during Moderate Sedation: IV Propofol (mg)
Total dose administered: 60
Time drug administered: 09:56
Moderate Sedation Procedure End Time: 10:14
Joint/Fracture Reduction
Left Shoulder:
Indication for procedure:: left shoulder dislocation
Procedure completed by: Dr Reyes and Dr. Jori Robledo MD
Consent form signed: Yes
Joint reduced: with anesthesia sedation
Anesthesia/sedation: Moderate sedation
Injury was: closed
Further treatement: no treatment needed
Post reduction exam: stable
Capillary Refill: normal
Normal distal neurovascular exam?: Yes
Peripheral Pulses: radial (left): 4+ and radial (right): 4+
<Jori Robledo MD, Resident - Last Filed: 08/22/24 14:00>
MDM/Problems Addressed
MDM/Problems Addressed:
73-year-old female presents to the ER after a fall at home. She fell on her left shoulder. She reports hitting her head on the floor. At this time we will order an elbow x-ray to evaluate dislocation versus fracture. Check CT scan of the head
Update: Elbow x-ray showed anterior subcoracoid dislocation of the left shoulder joint. closed reduction under propofol was done in the ED. Postprocedure x-ray showed the joint has been relocated. Evaluation with a CT scan of the head showed no
acute intracranial abnormalities. She will be discharged home to follow-up with Ortho as an outpatient. Pain control with Tylenol.
<Jori Robledo MD, Resident - Last Filed: 08/22/24 14:00>
*Critical Care Note
Total Time (30-74mins, 75-104mins- exclusive of procedures): Not Applicable
ED Attending Note
<Jori Robledo MD, Resident - Last Filed: 08/22/24 14:00>
-
Portions of this chart may have been created with voice recognition software.� Occasional wrong word or��sound alike� substitutions may have occurred due to the inherent limitations of voice recognition software.
<Prasad Reyes, DO - Last Filed: 08/22/24 13:42>
ED Attending Note
Patient seen and examined by attending physician: Yes
I performed a history and physical exam of patient and discussed management with resident, I reviewed resident's note and agree with documented findings and plan of care.: Yes
ED Attending Note:
I reviewed and agree with history treatment plan by Jori Robledo MD. My exam reveals 73-year-old female with left shoulder dislocation, anterior. X-ray shows proximal humeral head fracture. Reduced under sedation without difficulty.
Patient tolerated well.
Discharge Plan
Departure
Patient Disposition: Home (Routine Discharge)
Date of Disposition: 08/22/24
Time of Disposition: 12:25
Patient with high blood pressure during this ER visit?: Yes
Discharge Problem:
Anterior dislocation of left shoulder, Fracture of head of humerus
Instructions: Shoulder Dislocation (DC), Upper Arm Fracture ED, MODERATE SEDATION ADULT, BLOOD PRESSURE
Prescriptions:
No Action
aspirin 81 mg Tablet,Delayed Release (Dr/Ec)
81 mg PO DAILY@1100
oxycodone-acetaminophen 5-325 mg Tablet
1 tab PO QID
gabapentin 300 mg Capsule
300 mg PO DAILYPRN PRN (Reason: neuropathy)
albuterol sulfate 90 mcg/actuation Hfa Aerosol Inhaler
2 puff INHALATION R Q6HPRN PRN (Reason: sob)
citalopram 20 mg Tablet
20 mg PO DAILY Qty: 0
Patient Comments:
11/23/23- patient currently not filling, no strength on home list
fluticasone furoate-vilanterol [Breo Ellipta] 200-25 mcg/dose Blister With Device
1 inh INHALATION R DAILY
metoprolol succinate [Toprol XL] 100 mg Tablet Extended Release 24 Hr
100 mg PO DAILY
pantoprazole 40 mg Tablet,Delayed Release (Dr/Ec)
40 mg PO DAILY Qty: 30 2RF
celecoxib 200 mg Capsule
200 mg PO DAILY
atorvastatin 20 mg Tablet
20 mg PO DAILY
loperamide 2 mg Capsule
2 mg PO Q6HPRN PRN (Reason: diarrhea)
ondansetron HCl 4 mg Tablet
4 mg PO Q8HPRN PRN (Reason: nausea)
Referrals:
Link Martin MD [Active] - Call in 1-3 days for appt
Lewcun,Landon G., DO [Family Provider] -
Interventions
Interventions:
*Risk Screen - Suicide Last Done: 08/22/24 08:14
*General Assessment Last Done: 08/22/24 08:14
*Neglect/Abuse Screening Last Done: 08/22/24 08:14
*ED- Fall Risk Assessment Last Done: 08/22/24 08:27
*ED COVID-19 Vaccine History Last Done: 08/22/24 08:27
ED-Musculoskeletal Assessment Last Done: 08/22/24 08:27
Discharge Date and Time
Print Language: ANDORRAN
[2024-08-22] MEDS: DILAUDID 1 MG IV ×2 (08:55→09:34)
[2024-08-22] MEDS: TIGAN 100 MG IM (09:34)
[2024-08-22 10:43] LABS: % Eosinophils 2.1 % (0-6); % Immature Granulocytes 0.8 % (0-0.5); % Lymphocytes 10.8 % (20.5-51.1); % Monocytes 6.3 % (1.7-9.3); Absolute Basophils 0.1 10^3/uL (0-0.2); Absolute Eosinophils 0.3 10^3/uL (0-0.7); Absolute Immature Granulocytes 0.1 10^3/uL (0-0.05); Absolute Lymphocytes 1.3 10^3/uL (1.2-3.4); Absolute Monocytes 0.8 10^3/uL (0.1-0.6); Absolute Neutrophils 9.6 10^3/uL (1.4-6.5); Hematocrit 39.7 % (37.0-47.0); Hemoglobin 13.5 g/dL (12.0-16.0); Mean Corpuscular Hgb 34.7 pg (27.0-31.0); Mean Corpuscular Volume 102.1 fL (81.0-99.0); Nucleated Red Blood Cells % 0 %; Red Blood Cell Count 3.89 10^6/uL (4.20-5.40); Red Cell Dist. Width 15.4 % (11.5-14.5); White Blood Cell Count 12.2 10^3/uL (4.8-10.8)
== END 2024-08-22 16:00 | disposition home or self-care (01) ==
LOC: EMR 08:06
PROVIDERS: EMERGENCY PHYSICIAN Emergency Medicine; FAMILY PHYSICIAN Family Medicine
DX: S42.202A Unspecified fracture of upper end of left humerus, initial encounter for closed fracture (principal); S43.015A Anterior dislocation of left humerus, initial encounter; W01.0XXA Fall on same level from slipping, tripping and stumbling without subsequent striking against object, initial encounter; I48.91 Unspecified atrial fibrillation; I50.9 Heart failure, unspecified; I11.0 Hypertensive heart disease with heart failure
CPT/HCPCS: 99285; 23650; 99152; 70450; 73030; 73060; 85025; 93005

== ENCOUNTER → 2024-09-07 09:43 | Outpatient (REF) | payer OTHER, SELFPAY | LOC: HWRAD 09:43 | PROVIDERS: ATTENDING PHYSICIAN Physician Assistant; FAMILY PHYSICIAN Family Medicine | DX: S43.005A Unspecified dislocation of left shoulder joint, initial encounter (principal); S42.202A Unspecified fracture of upper end of left humerus, initial encounter for closed fracture; M25.512 Pain in left shoulder; M25.562 Pain in left knee | CPT/HCPCS: 73200; 73564 ==

== ENCOUNTER 2024-09-27 06:49 | Inpatient (IN) | payer OTHER, SELFPAY ==
--- NOTE | 2024-09-15 13:19 | CM ---
CM reviewed medical records. CM confirmed demographics. Patient lives with . Patient is known to [facility] and is currently on service. Patient has a wheelchair, walker, cane, overbed table, and trapeze. Patient is able to ambulate on her first
floor set up. Patient is currently on 3 liters of oxygen and her supplier is [facility].
Patient has a history of placement at [facility]. She stated that she had a good experience there and would return.
Patient is active with her PCP. Patient uses [facility] for medication services.
PLAN:SNF vs. HOme with home Care.
[2024-09-19 14:00] LABS: Hematocrit 38.1 % (37.0-47.0); Hemoglobin 12.8 g/dL (12.0-16.0); Mean Corp Hgb Conc. 33.6 g/dL (33.0-37.0); Mean Corpuscular Hgb 34.1 pg (27.0-31.0); Mean Corpuscular Volume 101.6 fL (81.0-99.0); Mean Platelet Volume 12.4 fL (7.4-10.4); Platelet Count 252 10^3/uL (130-400); Red Blood Cell Count 3.75 10^6/uL (4.20-5.40); Red Cell Dist. Width 13.2 % (11.5-14.5)
[2024-09-19 14:11] LABS: ALT (SGPT) 13 U/L (0-35); AST (SGOT) 22 U/L (14-36); Albumin 3.9 g/dl (3.5-5.0); Alkaline Phosphatase 99 U/L (38-126); Blood Urea Nitrogen 12 mg/dl (7-17); Calcium 9.6 mg/dl (8.4-10.2); Carbon Dioxide 32 mmol/L (22-30); Chloride 96 mmol/L (98-107); Glucose 125 mg/dl (70-99); Potassium 3.9 mmol/L (3.5-5.1); Sodium 139 mmol/L (135-145); Total Bilirubin 1.2 mg/dl (0.2-1.3); eGFR > 60.00
[2024-09-19 15:09] LABS: Glycohemoglobin (HgbA1c) 5.6 % (4.0-5.6)
[2024-09-27] VITALS (15 sets, daily range): BP systolic 99–148; BP diastolic 55–86
[2024-09-27] MEDS: CELEBREX 200 MG PO (07:42)
[2024-09-27] MEDS: TYLENOL 1000 MG PO (07:42)
[2024-09-27] MEDS: NORMOSOL-R/PLASMALYTE-A 1000 IV ×2 (07:43→15:48)
--- NOTE | 2024-09-27 10:57 | W.PN.ORTHO ---
Today's Communication / Plan
-
d/c when stable
Assessment
.
Dressing:
Clean, dry and intact.
Assessment:
Humerus Fx/O/A-s/p L Reverse TSA 09/27/24
DVT ppx-asa 81mg bid
-both PT/OT eval
-SNF
Balance and gait disturbance, which is multifactorial. She will
be placed on fall precautions.
Recurrent gastrointestinal bleed. We will increase aspirin to
81 mg b.i.d. and continue GI prophylaxis. -avoid NSAIDs
HF recovered EF.
O2 dependent on 3 L with recurrent acute CHF exacerbations requiring
admission. Monitor weight, I&O, diurese as indicated, and continue
supplemental oxygen. IVF rate decreased.
Opioid dependent with history of ETOH abuse. Multimodal
pain management to decrease narcotic use and prevent respiratory
suppression. IV steroid while inpatient, gabapentin tid and add
Serax hs if indicated.

PMH:
1. Osteoarthritis.
2. Osteoporosis.
3. Paroxysmal atrial fibrillation on no oral anticoagulation due to
fall risk.
4. Spinal stenosis with chronic vertebral fractures.
5. HFpEF, oxygen dependent, on 3 L.
6. CVA, bilateral cerebellar, with deficits of left mild
hemiparesis, right visual cut, balance disturbance, memory.
7. Ambulatory dysfunction with balance and gait disturbance.
8. Wheelchair level.
9. Recurrent GI bleed.
10. Thyroid nodule.
11. History of ETOH abuse.
Plan
.
Surgery / Date: L Reverse TSA 09/27/24
DVT Prophylaxis: Aspirin (81mg bid)
Activity:
Out of bed.
PT/OT
Discharge Plan: SNF
Vital Signs and Labs
.
Vital Signs and Labs:
Lab Results
09/19/24 12:31
09/19/24 12:31
Temp Pulse Resp BP Pulse Ox
97.5 F 70 15 148/86 91
09/27/24 07:33 09/27/24 10:45 09/27/24 10:45 09/27/24 10:45 09/27/24 10:45
[2024-09-27] MEDS: SUBLIMAZE 50 MCG IV ×2 (10:59→11:13)
[2024-09-27] MEDS: ROXICODONE 5 MG PO (11:39)
[2024-09-27] MEDS: NEURONTIN 200 MG PO ×2 (15:33→21:40)
[2024-09-27] MEDS: ANCEF 5 IV ×2 (15:34→22:37)
[2024-09-27] MEDS: TYLENOL PO (15:44)
[2024-09-27] MEDS: THIAMINE INJECTION 200 MG IV (15:46)
[2024-09-27] MEDS: PROTONIX 40 MG PO ×2 (15:48→19:39)
[2024-09-27] MEDS: LIPITOR 20 MG PO (15:48)
[2024-09-27] MEDS: TYLENOL 650 MG PO ×2 (15:50→19:39)
[2024-09-27] MEDS: DUONEB INH (16:03)
--- NOTE | 2024-09-27 16:52 | PTCARENOTE ---
Patient transferred to [address] [place] [address]. Report given to Jl elizalde with patient.
[2024-09-27] MEDS: CELEXA 20 MG PO (17:32)
[2024-09-27] MEDS: ASPIR LOW (ENTERIC COATED) 81 MG PO (19:39)
[2024-09-27] MEDS: SENOKOT 17.2 MG PO (19:41)
[2024-09-27] MEDS: DECADRON 4 MG IV (19:41)
[2024-09-27] MEDS: BACTROBAN 2% OINTMENT 1 APPLIC NASAL (19:41)
[2024-09-27] MEDS: COLACE 100 MG PO (19:41)
[2024-09-27] MEDS: DUONEB 3 ML INH (19:52)
[2024-09-27] MEDS: SERAX 10 MG PO (22:37)
[2024-09-28] VITALS (7 sets, daily range): BP systolic 87–126; BP diastolic 53–77; PULSE 68–75; O2SAT 96–97
[2024-09-28] MEDS: TYLENOL PO (00:46)
[2024-09-28] MEDS: TYLENOL 650 MG PO ×5 (04:22→21:55)
[2024-09-28] MEDS: DUONEB 3 ML INH ×3 (07:12→19:24)
[2024-09-28] MEDS: SYMBICORT 160/4.5 MCG INHALER 2 PUFF INH ×2 (07:12→19:24)
--- NOTE | 2024-09-28 08:03 | CM ---
Addendum entered by Nicole Valdez RN 09/28/24 09:19:
[facility] has accepted patient. CM is pending PT notes to forward to SNF.
PLAN: [facility]
Addendum entered by Nicole Valdez RN 09/28/24 08:53:
CM spoke with patient and she is agreeable to placement. [facility]. [facility] is reviewing clinical at this time. [facility] accepted.
Original Note:
CM reviewed medical records. Plan for SNF. As per pre-operative discussions, patient was at [facility]. CM sent referral to [facility] and [facility] for admission consideration.
PLAN: SNF, pending PT evaluations.
[2024-09-28] MEDS: ASPIR LOW (ENTERIC COATED) 81 MG PO ×2 (08:23→21:54)
[2024-09-28] MEDS: PROTONIX 40 MG PO ×2 (08:23→21:55)
[2024-09-28] MEDS: NEURONTIN 200 MG PO ×3 (08:23→21:56)
[2024-09-28] MEDS: DECADRON 4 MG IV ×2 (08:23→21:55)
[2024-09-28] MEDS: COLACE 100 MG PO ×2 (08:23→21:55)
[2024-09-28] MEDS: SENOKOT 17.2 MG PO ×2 (08:23→21:55)
[2024-09-28] MEDS: ROXICODONE 5 MG PO ×3 (08:27→22:03)
[2024-09-28] MEDS: THIAMINE INJECTION 200 MG IV (08:28)
[2024-09-28] MEDS: LIPITOR 20 MG PO (08:28)
[2024-09-28] MEDS: CELEXA 20 MG PO (08:28)
[2024-09-28] MEDS: BACTROBAN 2% OINTMENT 1 APPLIC NASAL ×2 (08:29→21:54)
--- NOTE | 2024-09-28 08:47 | VNURNOTE ---
Chart reviewed. Patient is current with [facility] nursing, PT, [employer] IN[employer]. Will continue to follow hospital course and DC plans. Noted in CM notes that pt interested in SNF. [facility] remains available if plans change.
[2024-09-28 09:33] LABS: ALT (SGPT) 12 U/L (0-35); AST (SGOT) 24 U/L (14-36); Albumin 3.4 g/dl (3.5-5.0); Alkaline Phosphatase 97 U/L (38-126); Blood Urea Nitrogen 24 mg/dl (7-17); Calcium 8.5 mg/dl (8.4-10.2); Carbon Dioxide 31 mmol/L (22-30); Chloride 100 mmol/L (98-107); Glucose 172 mg/dl (70-99); Potassium 3.6 mmol/L (3.5-5.1); Sodium 138 mmol/L (135-145); Total Bilirubin 0.6 mg/dl (0.2-1.3); Total Protein 5.9 g/dl (6.3-8.2); eGFR > 60.00
--- NOTE | 2024-09-28 12:23 | W.PN.ORTHO ---
Today's Communication / Plan
-
d/c when stable
Assessment
.
Distal Motor Intact: Yes
Dressing:
Clean, dry and intact.
Assessment:
Humerus Fx/O/A-s/p L Reverse TSA 09/27/24
DVT ppx-asa 81mg bid
-both PT/OT eval
-SNF
Hypotension POD#1-add Midodrine w/ parameter
Balance and gait disturbance, which is multifactorial.
--fall precautions.
Recurrent gastrointestinal bleed.
aspirin 81 mg b.i.d. and continue GI prophylaxis. -avoid NSAIDs
HF recovered EF.
O2 dependent on 3 L with recurrent acute CHF exacerbations requiring
admission. Monitor weight, I&O, diurese as indicated, and continue
supplemental oxygen. IVF rate decreased.
Check pro=BNP
Opioid dependent with history of ETOH abuse. Multimodal
pain management to decrease narcotic use and prevent respiratory
suppression. IV steroid while inpatient, gabapentin tid and add
Serax hs if indicated.
Plan
.
Surgery / Date: L Reverse TSA 09/27/24
DVT Prophylaxis: Aspirin (81mg bid)
Activity:
Out of bed.
PT/OT
Discharge Plan: SNF
Subjective
.
.:
Patient resting comfortably.
Vital Signs and Labs
.
Vital Signs and Labs:
Lab Results
09/28/24 07:49
09/28/24 07:49
Temp Pulse Resp BP Pulse Ox
98.0 F 73 15 99/57 100
09/28/24 10:50 09/28/24 10:50 09/28/24 10:50 09/28/24 10:50 09/28/24 10:50
Non-invasive Hgb result: 12.7
Physical Exam
-
HEENT: No pallor, cyanosis, or jaundice. Throat clear.
NECK: Supple. No JVD.
RESPIRATORY: very diminished lung pm0exad
CVS: S1, S2 normal. RRR.� No murmur, rub or gallop.
ABDOMEN: Soft, non-tender. No distension. BS+/normal.
EXTREMITIES: strength equal, no calf pain with palpation
VETERINARY PARASITOLOGIST: AOx3. No focal deficits. hand ii cutter grossly intact
[2024-09-28] MEDS: ProAmatine 5 MG PO ×2 (12:41→18:07)
--- NOTE | 2024-09-28 14:01 | PN.CDI ---
CDI
- -
CDI:
Physician Documentation Request
Admit Date: 09/27/24 06:49
Dear Doctor/PA,
Please review the following and provide your response in the progress notes.
Clinical Indicators:
Pt admitted with displaced left humerus fracture s/p surgery 09/27
Documented per H&P and progress notes 09/27&09/28, ' O2 dependent on 3 L with recurrent acute CHF exacerbations requiring admission...'
Please Provide a diagnosis for the above dependent oxygen use :
Chronic hypoxic Respiratory Failure
Hypoxia only
Other ( please specify)
Use of terms such as suspected, likely, concern for, or probable (associated with a specific diagnosis that is being evaluated, monitored, or treated as if it exists) are acceptable and can be coded in the inpatient setting, when documented at the
time of discharge.
Thank you,
Jacquelyn Harp RN
CDI Specialist
[facility] [place] [facility]
Please use your independent medical judgment in providing your response.
[2024-09-28 14:03] LABS: NT-proBNP 956 pg/ml
--- NOTE | 2024-09-28 14:04 | PN.CDI ---
CDI
- -
CDI:
Physician Documentation Request
Admit Date: 09/27/24 06:49
Dear Doctor/ PA,
Please review the following and provide your response in the progress notes.
Clinical Indicators:
Pt admitted with displaced left humerus fracture s/p surgery 09/27
Documented per H&P & Progress notes 09/27 ,' . Osteoporosis....'
Please provide the suspected etiology of the above humerus fracture:
Multifactorial due to fall/ Osteoporosis
Due to fall only
Other ( please specify)
Use of terms such as suspected, likely, concern for, or probable (associated with a specific diagnosis that is being evaluated, monitored, or treated as if it exists) are acceptable and can be coded in the inpatient setting, when documented at the
time of discharge.
Thank you,
Jacquelyn Harp RN
CDI Specialist
[facility] [facility]
Please use your independent medical judgment in providing your response.
[2024-09-28] MEDS: SERAX 10 MG PO (21:56)
[2024-09-29] VITALS (8 sets, daily range): BP systolic 115–138; BP diastolic 59–74; PULSE 80–88; O2SAT 96
[2024-09-29] MEDS: TYLENOL 650 MG PO ×5 (00:20→20:17)
[2024-09-29] MEDS: DILAUDID 0.5 MG IV ×3 (00:21→20:24)
[2024-09-29] MEDS: FLUSH (NSS) 2 FLUSH IV (00:22)
[2024-09-29] MEDS: ROXICODONE 5 MG PO ×4 (02:58→17:56)
[2024-09-29] MEDS: DUONEB 3 ML INH ×4 (03:23→19:22)
[2024-09-29] MEDS: TYLENOL PO (04:16)
[2024-09-29] MEDS: SYMBICORT 160/4.5 MCG INHALER 2 PUFF INH ×2 (08:23→19:22)
[2024-09-29] MEDS: LIPITOR 20 MG PO (08:26)
[2024-09-29] MEDS: ASPIR LOW (ENTERIC COATED) 81 MG PO ×2 (08:26→20:17)
[2024-09-29] MEDS: NEURONTIN 200 MG PO ×3 (08:26→22:00)
[2024-09-29] MEDS: PROTONIX 40 MG PO ×2 (08:26→20:17)
[2024-09-29] MEDS: CELEXA 20 MG PO (08:27)
[2024-09-29] MEDS: ProAmatine 5 MG PO ×3 (08:30→17:57)
[2024-09-29] MEDS: COLACE 100 MG PO ×2 (08:31→20:17)
[2024-09-29] MEDS: SENOKOT 17.2 MG PO ×2 (08:31→20:17)
[2024-09-29] MEDS: THIAMINE INJECTION 200 MG IV (08:32)
[2024-09-29] MEDS: DECADRON 4 MG IV (08:33)
[2024-09-29] MEDS: MILK OF MAGNESIA 30 ML PO (09:10)
--- NOTE | 2024-09-29 10:28 | CM ---
Addendum entered by Nicole Valdez RN 09/29/24 11:14:
Plan for discharge 09/30. CM updated [facility] admission coordinator with plan for discharge 09/30. CM is awaiting today PT/OT notes for authorization.
Patient is in agreement with discharge plan.
PLAN: [facility]
Original Note:
CM met with patient in room. Patient was given IMM. Patient signed notice. CM explained appeal process. Patient stated that she feels that she is not medically ready for discharge to SNF and would plan to appeal her discharge. CM updated
orthopedic PA with patient's plan to appeal if discharged today.
--- NOTE | 2024-09-29 10:56 | W.PN.ORTHO ---
Today's Communication / Plan
-
d/c am if stable
Assessment
.
Distal Motor Intact: Yes
Dressing:
Clean, dry and intact.
Assessment:
L Humerus Fx
-multifactorial due to ambulatory dysfunction/balance disturbance with underlying osteoporosis
O/A
-s/p L Reverse TSA 09/27/24
-check Vit D, TSH
-fall precautions
DVT ppx-asa 81mg bid
-both PT/OT therapy
Hypotension POD#1-add Midodrine w/ parameter-BP stable
Chronic hypoxic respiratory failure
HF recovered EF.
O2 dependent on 3 L at home w/ recurrent acute CHF exacerbations requiring
admission.
-IVF rate was decreased david-operatively
-POD#2 weight increase with mildly elevated BNP--IV Lasix-fluid restrict
-supplemental oxygen at home 3L-sats stable and at baseline
Opioid dependent with history of ETOH abuse. Multimodal
pain management to decrease narcotic use and prevent respiratory
suppression. IV steroid while inpatient, gabapentin tid and Serax at hs.
Recurrent gastrointestinal bleed.
aspirin 81 mg b.i.d. and continue GI prophylaxis. -avoid NSAIDs
Lztezdllltua-jlqokxk-UR today POD#2
Plan
.
Surgery / Date: L Reverse TSA 09/27/24
DVT Prophylaxis: Aspirin (81mg bid)
Activity:
Out of bed.
PT/OT
Discharge Plan: SNF
Subjective
.
.:
Patient resting comfortably.
Vital Signs and Labs
.
Vital Signs and Labs:
Lab Results
09/28/24 07:49
09/28/24 07:49
Temp Pulse Resp BP Pulse Ox
98.1 F 74 16 115/63 98
09/29/24 08:26 09/29/24 08:30 09/29/24 08:26 09/29/24 08:30 09/29/24 08:26
Non-invasive Hgb result: 11.4
Physical Exam
-
HEENT: No pallor, cyanosis, or jaundice. Throat clear.
NECK: Supple. No JVD.
RESPIRATORY: Lungs clear to auscultation.
CVS: S1, S2 normal. RRR.� No murmur, rub or gallop.
ABDOMEN: Soft, non-tender. No distension. BS+/normal.
EXTREMITIES: strength equal, no calf pain with palpation
MANAGER FUND: AOx3. No focal deficits. 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
[2024-09-29] MEDS: LASIX 20 MG IV (10:59)
[2024-09-29 12:53] LABS: Vitamin D, 25-OH*** 21.3 ng/mL (30-80)
[2024-09-29 13:07] LABS: TSH < 0.02 uIU/ml (0.47-4.68)
[2024-09-29] MEDS: SERAX 10 MG PO (22:01)
[2024-09-30 00:17] VITALS: BP 119/63
[2024-09-30] MEDS: TYLENOL 650 MG PO ×5 (00:25→15:52)
[2024-09-30 03:00] VITALS: BP 123/69
[2024-09-30] MEDS: DUONEB 3 ML INH (05:36)
[2024-09-30] MEDS: SYMBICORT 160/4.5 MCG INHALER 2 PUFF INH (05:37)
[2024-09-30] MEDS: PROTONIX 40 MG PO (07:58)
[2024-09-30] MEDS: NEURONTIN 200 MG PO ×2 (07:58→15:52)
[2024-09-30] MEDS: THIAMINE INJECTION 200 MG IV (07:59)
[2024-09-30] MEDS: CELEXA 20 MG PO (07:59)
[2024-09-30] MEDS: ASPIR LOW (ENTERIC COATED) 81 MG PO (07:59)
[2024-09-30] MEDS: LIPITOR 20 MG PO (07:59)
[2024-09-30] MEDS: SENOKOT 17.2 MG PO (07:59)
[2024-09-30] MEDS: COLACE 100 MG PO (07:59)
[2024-09-30 08:00] VITALS: BP 135/92
[2024-09-30] MEDS: ProAmatine 5 MG PO ×2 (08:00→13:56)
[2024-09-30] MEDS: LASIX 20 MG IV (08:02)
--- NOTE | 2024-09-30 08:22 | CM ---
Addendum entered by Nicole Valdez RN 09/30/24 14:14:
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
Addendum entered by Nicole Valdez RN 09/30/24 11:10:
[facility] Authorization for Acute Care
[id number]
Addendum entered by Nicole Valdez RN 09/30/24 08:27:
Krystin Clawson
Report
[phone]

Original Note:
[facility] Authorization
[id number]
NRD 10/04
[2024-09-30] MEDS: DRISDOL (VITAMIN D2) 50000 UNITS PO (08:24)
[2024-09-30 10:01] LABS: Free T3 3.05 pg/ml (2.77-5.27); Free T4 2.75 ng/dl (0.78-2.19)
[2024-09-30] MEDS: ROXICODONE 5 MG PO ×2 (10:25→14:25)
[2024-09-30 11:19] VITALS: BP 120/65
[2024-09-30] MEDS: TYLENOL PO (11:51)
[2024-09-30] MEDS: LASIX 10 MG IV (11:51)
--- NOTE | 2024-09-30 12:08 | W.PN.ORTHO ---
Today's Communication / Plan
-
d/c
Assessment
.
Distal Motor Intact: Yes
Dressing:
Clean, dry and intact.
Assessment:
L Humerus Fx
-multifactorial due to ambulatory dysfunction/balance disturbance with underlying osteoporosis
O/A
-s/p L Reverse TSA 09/27/24
Vit D deficiency--supplement Ergocalciferol-Rx also sent to home pharmacy
Thyroid panel indicative of hyperthyroid-Dr. Jaquez made aware-referral to radio repairer OP provided
-fall precautions
DVT ppx-asa 81mg bid
-both PT/OT therapy
Hypotension POD#1-add Midodrine w/ parameter-BP stable
Chronic hypoxic respiratory failure
HF recovered EF.
O2 dependent on 3 L at home w/ recurrent acute CHF exacerbations requiring
admission.
-IVF rate was decreased david-operatively
-POD#2 weight increase with mildly elevated BNP--IV Lasix-fluid restrict-weight trending down
-supplemental oxygen at home 3L-sats stable and at baseline
Opioid dependent with history of ETOH abuse. Multimodal
pain management to decrease narcotic use and prevent respiratory
suppression. IV steroid while inpatient, gabapentin tid and Serax at hs.
Recurrent gastrointestinal bleed.
aspirin 81 mg b.i.d. and continue GI prophylaxis. -avoid NSAIDs
Hibvcfsvtcwz-cqosqgp-DQ today POD#2
*Prevention of post-op complications re orthostasis and constipation/ileus --discussed and outlined in d/c instructions: TEDs stockings, minimizing opioid, adequate hydration and adhering to bowel regimen*
Plan
.
Surgery / Date: L Reverse TSA 09/27/24
DVT Prophylaxis: Aspirin
Activity:
Out of bed.
PT/OT
Discharge Plan: SNF
Subjective
.
.:
Patient resting comfortably.
Vital Signs and Labs
.
Vital Signs and Labs:
Lab Results
09/28/24 07:49
09/28/24 07:49
Temp Pulse Resp BP Pulse Ox
98.2 F 73 18 120/65 95
09/30/24 11:19 09/30/24 11:51 09/30/24 11:19 09/30/24 11:51 09/30/24 11:19
Non-invasive Hgb result: 11.1
Physical Exam
-
HEENT: No pallor, cyanosis, or jaundice. Throat clear.
NECK: Supple. No JVD.
RESPIRATORY: Lungs clear to auscultation.
CVS: S1, S2 normal. RRR.� No murmur, rub or gallop.
ABDOMEN: Soft, non-tender. No distension. BS+/normal.
EXTREMITIES: strength equal, no calf pain with palpation
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 No focal deficits. 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
--- NOTE | 2024-09-30 12:38 | W.DS.TRANS ---
DC Summary - Roping Tender
-
Discharge Instructions:
Discharge Diagnosis/Procedures L Reverse TSA 09/27/24-Dr. Cordell Iverson
Diet Restrict fluids to 64 oz,No added salt
Additional Diets CHF diet-MONITOR FOR WEIGHT GAIN >3-5LBS--CHECK
WEIGHT 3X WEEK
Activity With Walker,With assistance
Additional Activity [place]ane w ambulation and ADLs w/ supervision
assist--FALL PRECAUTIONS-Minimize Opioid and
wear TEDs stockings to prevent low blood
pressure/dizziness--NWB LUE
Driving Restrictions No driving
Other Services PT,VN,OT
Instructions:
Stand-Alone Forms: Total Shoulder Replacement D/C
Changes to Home Medications: Yes
Discharge Medications:
DC Medications w/original date entered in [facility]
albuterol sulfate 90 mcg/actuation aerosol inhaler 2 puff inhalation R Q6HPRN PRN sob 03/26/22
aspirin 81 mg tablet,delayed release 81 mg PO DAILY@1100 Blood clot prevention/tx 03/26/22
citalopram 20 mg tablet 20 mg PO DAILY Depression ##0 11/23/23
fluticasone furoate 200 mcg-vilanterol 25 mcg/dose inhalation powder (Breo Ellipta) 1 inh inhalation R DAILY Lung/Breathing Issues 11/23/23
metoprolol succinate 100 mg tablet,extended release 24 hr (Toprol XL) 100 mg PO DAILY Heart Failure 11/23/23
atorvastatin 20 mg tablet 20 mg PO DAILY High Cholesterol 04/21/24
celecoxib 200 mg capsule 200 mg PO DAILY Pain 04/21/24
loperamide 2 mg capsule 2 mg PO Q6HPRN PRN diarrhea 04/21/24
mupirocin 2 % topical ointment 1 applic topical BID infection prevention #1 tube 09/19/24
pantoprazole 40 mg tablet,delayed release 40 mg PO DAILY GERD 09/28/24
Saccharomyces boulardii 250 mg capsule (Florastor) 250 mg PO BID #1 cap 09/30/24
acetaminophen 325 mg tablet (Tylenol) 650 mg (2 x 325 mg) PO QID #1 tab 09/30/24
aspirin 325 mg tablet 325 mg PO DAILY blood clot prevention #1 tab 09/30/24
dexamethasone 4 mg tablet 4 mg PO BID inflammation #6 tabs 09/30/24
docusate sodium 100 mg capsule (Colace) 100 mg PO BID stool softner #1 cap 09/30/24
doxycycline hyclate 100 mg capsule 100 mg PO BID infection prevention #10 caps 09/30/24
ergocalciferol (vitamin D2) 50 mcg (2,000 unit) capsule 50 mcg PO .twice a week #30 caps 09/30/24
gabapentin 300 mg capsule 300 mg PO HS #0 caps 09/30/24
magnesium hydroxide 400 mg/5 mL oral suspension (Milk of Magnesia) 30 ml PO HS PRN constipation #1 mL 09/30/24
ondansetron HCl 4 mg tablet 4 mg PO Q6H PRN nausea #0 tabs 09/30/24
oxycodone 5 mg tablet 5 mg PO Q6H PRN 1 tab moderate pain, 2 tabs severe pain #30 tabs 09/30/24
sennosides 8.6 mg tablet (Senokot) 1 mg (0.1163 x 8.6 mg) PO HS laxative #2 tabs 09/30/24
spironolactone 25 mg tablet (Aldactone) 25 mg PO BID BP-diuretic #60 tabs 09/30/24
Home Medication Changes
aspirin 325 mg tablet 325 mg PO DAILY blood clot prevention #1 tab 09/30/24
dexamethasone 4 mg tablet 4 mg PO BID inflammation #6 tabs 09/30/24
docusate sodium 100 mg capsule (Colace) 100 mg PO BID stool softner #1 cap 09/30/24
doxycycline hyclate 100 mg capsule 100 mg PO BID infection prevention #10 caps 09/30/24
ergocalciferol (vitamin D2) 50 mcg (2,000 unit) capsule 50 mcg PO .twice a week #30 caps 09/30/24
gabapentin 300 mg capsule 300 mg PO HS #0 caps 09/30/24
magnesium hydroxide 400 mg/5 mL oral suspension (Milk of Magnesia) 30 ml PO HS PRN constipation #1 mL 09/30/24
ondansetron HCl 4 mg tablet 4 mg PO Q6H PRN nausea #0 tabs 09/30/24
oxycodone 5 mg tablet 5 mg PO Q6H PRN 1 tab moderate pain, 2 tabs severe pain #30 tabs 09/30/24
sennosides 8.6 mg tablet (Senokot) 1 mg (0.1163 x 8.6 mg) PO HS laxative #2 tabs 09/30/24
spironolactone 25 mg tablet (Aldactone) 25 mg PO BID BP-diuretic #60 tabs 09/30/24
Pending Results: No
== END 2024-09-30 17:45 | DRG 483 ==
LOC: 2 SOUTH 06:49
PROVIDERS: Physician Assistant Medical; ADMITTING PHYSICIAN Orthopaedic Surgery; FAMILY PHYSICIAN Family Medicine
PROC: 0RRK0JZ Replacement of Left Shoulder Joint with Synthetic Substitute, Open Approach (ICD-10-PCS; 2024-09-27)
PROC: 0RPK0J6 Removal of Synthetic Substitute from Left Shoulder Joint, Humeral Surface, Open Approach (ICD-10-PCS; 2024-09-27)
DX: M80.022A Age-related osteoporosis with current pathological fracture, left humerus, initial encounter for fracture (principal); S42.292A Other displaced fracture of upper end of left humerus, initial encounter for closed fracture; F11.20 Opioid dependence, uncomplicated; J96.11 Chronic respiratory failure with hypoxia; I50.32 Chronic diastolic (congestive) heart failure; I69.354 Hemiplegia and hemiparesis following cerebral infarction affecting left non-dominant side; K92.2 Gastrointestinal hemorrhage, unspecified; K59.09 Other constipation; I48.0 Paroxysmal atrial fibrillation; W19.XXXA Unspecified fall, initial encounter; E05.90 Thyrotoxicosis, unspecified without thyrotoxic crisis or storm; I95.81 Postprocedural hypotension; Z99.81 Dependence on supplemental oxygen
CPT/HCPCS: 36415; 73020; 80053; 82306; 83036; 83880; 84439; 84443; 84481; 85018; 85027; 87070; 93005; 94640; 97110; 97163; 97167; 97530; 97535; C1713; C1776